=== PATIENT | female | born 1940 | race Caucasian/White ===

== ENCOUNTER 2019-06-03 21:12 | Inpatient (IN) ==
[2019-06-03] MEDS ORDERED: ALBUT/IPRATROP 3MG/0.5MG NEB 3 ML VIAL NEB ONE (22:08)
--- NOTE | 2019-06-03 22:14 | XRay Report ---
SINGLE VIEW CHEST CLINICAL HISTORY: Generalized weakness. FINDINGS: An AP, portable, upright chest radiograph is obtained. No prior studies are available for c omparison at the time of dictation. The examination is degraded by portable technique and patient rot ation. A right subclavian central venous infusion port is in place. The tip of the catheter projects over the right atrium. The heart is enlarged noting atherosclerotic calcification of the thoracic aor ta. There is pulmonary vascular congestion. There are small pleural effusions with bibasilar consolid ation. No pneumothorax is seen. The skeletal structures are osteopenic. The bony thorax is grossly in tact. IMPRESSION: 1. Cardiomegaly with evidence of congestive failure. 2. Small pleural effusions with bibasilar consolidation. Electronically signed by: Suman Cobb M.D. 06/03/2019 10:13 PM
[2019-06-03] MEDS ORDERED: NovoLIN-R INSULIN PER UNIT CHARGE IV STA ×2 (22:21→23:03)
[2019-06-03 22:30] LABS: iSTAT Creatinine 1.1 mg/dl (0.6-1.3); iSTAT Hemoglobin 9.2 g/dl (12.0-16.0); iSTAT Ionized Calcium 1.24 mmol/l (1.12-1.32); iSTAT Potassium 5.1 mEq/L (3.3-5.0)
[2019-06-03 22:52] LABS: Hematocrit (blood only) 30.7 % (37-47); Hemoglobin 9.1 g/dL (12.0-16.0); Mean Corpuscular Hemoglobin 28.1 pg (25-34); Mean Corpuscular Hgb Conc 29.6 g/dL (32-36); Mean Corpuscular Volume 94.8 fL (80-100); Mean Platelet Volume 9.5 fL (7.4-10.4); Platelet Count 233 K/uL (130-400); RDW Coefficient of Variation 17.3 % (11.5-14.5); Red Blood Count 3.24 M/uL (4.2-5.4); White Blood Count 7.78 K/uL (4.8-10.8)
[2019-06-03] MEDS ORDERED: SODIUM CHLORIDE 0.9% 1000ML 1,000 ML IV ONE (22:52)
[2019-06-03 23:06] LABS: Base Excess VBG 9.7 mEq/L; pH VBG 7.32 (7.36-7.41)
[2019-06-03 23:15] LABS: Basophilic Stippling 1+; Basophils # (auto) 0.02 K/uL (0-0.2); Basophils % (auto) 0.3 %; Immature Granulocytes # (auto) 0.66 K/uL (0.00-0.02); Immature Granulocytes % (auto) 8.5 %; Lymphocytes # (auto) 0.82 K/uL (1.2-3.4); Lymphocytes % (auto) 10.5 %; Monocytes # (auto) 0.36 K/uL (0.11-0.59); Monocytes % (auto) 4.6 %; Neutrophils # (auto) 5.92 K/uL (1.4-6.5); Neutrophils % (auto) 76.1 %
[2019-06-03 23:27] LABS: Alanine Aminotransferase 17 U/L (12-78); Albumin Globulin Ratio 0.5 (0.9-2); Albumin Level 2.1 gm/dl (3.4-5.0); Alkaline Phosphatase 91 U/L (45-117); Aspartate Aminotransferase 7 U/L (15-37); BUN Creatinine Ratio 35.8 (10-20); Bilirubin,Total 0.3 mg/dl (0.2-1); Blood Urea Nitrogen 40 mg/dl (7-18); Calcium 8.7 mg/dl (8.5-10.1); Carbon Dioxide 36 mmol/L (21-32); Chloride 103 mmol/L (98-107); Creatinine Clr Calc Pharmacy 59.6 ml/min; Est GFR (African American) 54.9; Est GFR (Non-African American) 47.3; Globulin 4.3 gm/dl (2.5-4.0); Glucose 417 mg/dl (70-99); Potassium 5.1 mmol/L (3.5-5.1); Sodium 141 mmol/L (136-145); Thyroid Stimulating Hormone 0.274 uIu/ml (0.300-4.500); Total Protein 6.4 gm/dl (6.4-8.2); Troponin I < 0.015 ng/ml (0-0.045)
[2019-06-03 23:43] LABS: Beta-Hydroxybutyrate 0.78 mg/dl (0.2-2.81)
[2019-06-03] MEDS ORDERED: LORazepam 1 MG/2 ML VIAL IV STA (23:46)
--- NOTE | 2019-06-03 23:46 | Emergency Department Note ---
Entered by Kathryn Das acting as a scribe for History of Present Illness General Chief complaint: Weakness Stated complaint: WEAKNESS Time Seen by Provider: 06/03/19 21:47 Source: patient History of Present Illness Onset (ago): week(s) 1 Location: head, upper extremity and lower extremity Pain Consistency: + other (after receiving blood transfusion 1 week ago) Quality: + other (weakness) Associated symptoms: + shortness of breath and + other (Negative abdominal pain) The patient is a 78 year old female who presents to the ED with complaints of weakness beginning last week. She has a hx of uterine cancer, on chemo. She had been receiving treatments at [place]. She received a blood transfusion last week and since then, she has had weakness and SOB. The patient denies any abdominal pain. She wears 2 L of O2 at night. Her PCP is Dr. Demi Ortega, Family Medicine. Home Medications Home Medications Medication Instructions Recorded Confirmed Type Vitamin B Complex Liquid 1 dose PO DAILY 06/03/19 06/03/19 History albuterol sulfate 2.5 mg/kg CONTINUOUS NEBULIZATION 06/03/19 06/03/19 History Q4 PRN allopurinol 100 mg PO DAILY 06/03/19 06/03/19 History budesonide-formoterol [Symbicort] 2 puff INHALATION BID 06/03/19 06/03/19 History bumetanide 0.5 mg PO DAILY 06/03/19 06/03/19 History cholecalciferol (vitamin D3) 0 unit PO DAILY 06/03/19 06/03/19 History [Vitamin D3] ciprofloxacin HCl 500 mg PO BID 06/03/19 06/03/19 History dexamethasone [Decadron] 8 mg PO UD 06/03/19 06/03/19 History ipratropium-albuterol 3 ml INHALATION QID PRN 06/03/19 06/03/19 History levothyroxine 150 mcg PO CQWK 06/03/19 06/03/19 History lisinopril 10 mg PO DAILY 06/03/19 06/03/19 History ondansetron HCl [Zofran] 8 mg PO Q8 06/03/19 06/03/19 History potassium chloride 10 meq PO DAILY 06/03/19 06/03/19 History prednisone 0 mg PO .TAPER UD 06/03/19 06/03/19 History prochlorperazine maleate 10 mg PO .Q4-6 PRN 06/03/19 06/03/19 History sod phos di, mono-K phos mono 1 tab PO BID 06/03/19 06/03/19 History [Phospha 250 Neutral] terconazole 1 appful VAGINAL UD 06/03/19 06/03/19 History Allergies Allergy/AdvReac Type Severity Reaction Status Date / Time No Known Allergies Allergy Unverified 06/03/19 22:22 Past Med/Surg History Medical History Encounter for insertion of venous access port Uterine cancer Surgical History No pertinent past surgical history Family History Other No pertinent family history in first degree relatives Social History Feels Safe at Home: Yes Smoking Status: Never smoker Review of Systems See HPI for pertinent positives & negatives. and A total of 10 systems reviewed and were otherwise negative Physical Exam Vital Signs Vital Signs - 24 hr 06/03/19 21:10 06/03/19 22:00 06/03/19 22:31 Temperature 36.7 C Temperature Source Oral Pulse Rate 81 75 67 Pulse Rate [Apical] Pulse Rate from SpO2 Sensor 78 Respiratory Rate 24 15 26 H Respiratory Effort / Characteristics Non-Labored Spontaneous Short of Breath Respiratory Depth Normal Respiratory Pattern Regular Blood Pressure 144/80 H 179/88 H Blood Pressure [Left Arm] Blood Pressure Mean 88 126 Blood Pressure Mean [Left Arm] Pulse Oximetry 88 L 100 Oxygen Delivery Method Nasal Cannula Nasal Cannula Oxygen Flow Rate 2 2 Sepsis Recent Fever Within 48 Hours No Sepsis New/Unexplained Change in Mental Status No Sepsis Action Taken by Nursing No Action Required Oxygen Flow Rate - Titration 2 Pulse Oximetry Post Tiitration 94 06/03/19 22:38 06/03/19 23:25 06/04/19 01:18 Temperature Temperature Source Pulse Rate Pulse Rate [Apical] 65 94 H 112 H Pulse Rate from SpO2 Sensor Respiratory Rate 18 20 22 Respiratory Effort / Characteristics Non-Labored Spontaneous Respiratory Depth Respiratory Pattern Blood Pressure Blood Pressure [Left Arm] 153/95 H 170/76 H Blood Pressure Mean Blood Pressure Mean [Left Arm] 114 107 Pulse Oximetry 100 94 94 Oxygen Delivery Method Nasal Cannula Nasal Cannula Nasal Cannula Oxygen Flow Rate 4 2 2 Sepsis Recent Fever Within 48 Hours Sepsis New/Unexplained Change in Mental Status Sepsis Action Taken by Nursing Oxygen Flow Rate - Titration Pulse Oximetry Post Tiitration GENERAL: Awake, alert, well-appearing, in no acute distress HENT: Normocephalic, atraumatic. Oropharynx unremarkable. EYES: Normal conjunctiva. Sclera non-icteric. NECK: Supple. No nuchal rigidity. FROM. No JVD. RESPIRATORY: Clear to auscultation. CARDIAC: Regular rate, normal rhythm. Extremities warm and well perfused. Pulses equal. ABDOMEN: Soft, non-distended. No tenderness to palpation. No rebound or guarding. No masses. RECTAL: Deferred. MUSCULOSKELETAL: Chest examination reveals no tenderness. Port in place in right chest wall. The back is symmetrical on inspection without obvious abnormality. There is no CVA tenderness to palpation. No joint edema. LOWER EXTREMITIES: Calves are equal size bilaterally and non-tender. No edema. No discoloration. NEURO: Normal sensorium. No sensory or motor deficits noted. SKIN: No rash or jaundice noted. Course Course 2154: Past medical records reviewed. The patient was evaluated in room A3. A complete history and physical exam was performed. Administered Medications Ioversol (Optiray 320 125ml) 125 ml IV ONCE PRN PRN Reason: Interaction Checking Stop: 06/08/19 00:47 Last Admin: 06/04/19 00:48 Dose: 91 ml Documented by: [id number] Discontinued Medications Albuterol (Duoneb) 12 ml NEB ONE ONE Stop: 06/03/19 22:09 Last Admin: 06/03/19 22:34 Dose: 12 ml Documented by: [id number] Furosemide (Lasix) 40 mg IV NOW STA Stop: 06/04/19 01:06 Last Admin: 06/04/19 01:07 Dose: 40 mg Documented by: [id number] Sodium Chloride (Nss 1000ml) 1,000 mls @ 999 mls/hr IV .Q1H1M ONE Stop: 06/03/19 23:52 Last Infusion: 06/04/19 00:02 Dose: 0 mls/hr Documented by: [id number] Admin: 06/03/19 22:59 Dose: 999 mls/hr Documented by: [id number] Lorazepam (Ativan) 1 mg in 2 mls @ 2 mls/min IV NOW STA Stop: 06/03/19 23:47 Last Admin: 06/03/19 23:51 Dose: 2 mls/min Documented by: [id number] Lorazepam (Ativan) 1 mg in 2 mls @ 2 mls/min IV NOW STA Stop: 06/04/19 00:20 Last Admin: 06/04/19 00:24 Dose: 2 mls/min Documented by: [id number] Insulin Human Regular (Novolin R U-100 Per Unit) 10 units IV NOW STA Stop: 06/03/19 22:22 Last Admin: 06/03/19 22:59 Dose: 10 units Documented by: [id number] Cosigned by: [id number] Insulin Human Regular (Novolin R U-100 Per Unit) 10 units IV NOW STA Stop: 06/03/19 23:04 Last Admin: 06/03/19 23:26 Dose: 10 units Documented by: [id number] Cosigned by: [id number] Methylprednisolone (Solumedrol) 125 mg IV NOW STA Stop: 06/04/19 00:42 Last Admin: 06/04/19 01:06 Dose: 125 mg Documented by: [id number] Medical Decision Making Differential Diagnosis Differential diagnosis: Etiologies such as metabolic, infection, hypo/hyperglycemia, electrolyte abnormalities, cardiac sources, intracerebral event, toxicologic, neurologic, as well as others were entertained. Medical Records Attestation: I reviewed the patient's medical records. Home Medications Current Medication List: was personally reviewed by me Laboratory Data Result diagrams: 06/03/19 21:57 06/03/19 21:57 Lab Results 06/03/19 06/03/19 06/03/19 Range/Units 21:57 21:57 21:57 WBC 7.78 (4.8-10.8) K/uL RBC 3.24 L (4.2-5.4) M/uL Hgb 9.1 L (12.0-16.0) g/dL POC Hgb (12.0-16.0) g/dl Hct 30.7 L (37-47) % POC Hct (37-47) % MCV 94.8 (80-100) fL MCH 28.1 (25-34) pg MCHC 29.6 L (32-36) g/dL RDW Std Deviation 60.0 H (36.4-46.3) fL RDW Coeff of Gal 17.3 H (11.5-14.5) % Plt Count 233 (130-400) K/uL MPV 9.5 (7.4-10.4) fL Immature Gran % (Auto) 8.5 % Neut % (Auto) 76.1 % Lymph % (Auto) 10.5 % [place] % (Auto) 4.6 % Eos % (Auto) 0.0 % Baso % (Auto) 0.3 % Immature Gran # (Auto) 0.66 H (0.00-0.02) K/uL Neut # (Auto) 5.92 (1.4-6.5) K/uL Lymph # (Auto) 0.82 L (1.2-3.4) K/uL [place] # (Auto) 0.36 (0.11-0.59) K/uL Eos # (Auto) 0.00 (0-0.5) K/uL Baso # (Auto) 0.02 (0-0.2) K/uL Basophilic Stippling 1+ VBG pH (7.36-7.41) VBG pCO2 (38-50) mmHg VBG pO2 mmHg VBG HCO3 mmol/L VBG O2 Saturation % VBG Base Excess mEq/L Barometric Pressure mm/Hg POC Sodium (135-144) mEq/L Sodium 141 (136-145) mmol/L POC Potassium (3.3-5.0) mEq/L Potassium 5.1 (3.5-5.1) mmol/L POC Chloride (101-112) mEq/L Chloride 103 (98-107) mmol/L Carbon Dioxide 36 H (21-32) mmol/L POC Total CO2 (24-31) mEq/l Anion Gap 2.0 L (3-11) POC Anion Gap (16-25) mmol/L POC BUN (7-18) mg/dl BUN 40 H (7-18) mg/dl Creatinine 1.12 (0.6-1.2) mg/dl POC Creatinine (0.6-1.3) mg/dl Est Cr Clr Drug Dosing 59.6 ml/min Est GFR ( Amer) 54.9 Est GFR (Non-Af Amer) 47.3 BUN/Creatinine Ratio 35.8 H (10-20) Glucose 417 H* (70-99) mg/dl POC Glucose (70-99) POC Glucose (other) (70-99) mg/dl Lactate 1.2 (0.4-2.0) mmol/L Calcium 8.7 (8.5-10.1) mg/dl POC Ioniz Calcium Fal[place]i (1.12-1.32) mmol/l Total Bilirubin 0.3 (0.2-1) mg/dl AST 7 L (15-37) U/L ALT 17 (12-78) U/L Alkaline Phosphatase 91 (45-117) U/L Troponin I < 0.015 (0-0.045) ng/ml NT-Pro-B Natriuret Pep 2412 H (0-1800) pg/ml Total Protein 6.4 (6.4-8.2) gm/dl Albumin 2.1 L (3.4-5.0) gm/dl Globulin 4.3 H (2.5-4.0) gm/dl Albumin/Globulin Ratio 0.5 L (0.9-2) Beta-Hydroxybutyric Acd 0.78 (0.2-2.81) mg/dl TSH 0.274 L (0.300-4.500) uIu/ml 06/03/19 06/03/19 06/03/19 Range/Units 22:16 22:50 23:23 WBC (4.8-10.8) K/uL RBC (4.2-5.4) M/uL Hgb (12.0-16.0) g/dL POC Hgb 9.2 L (12.0-16.0) g/dl Hct (37-47) % POC Hct 27 L (37-47) % MCV (80-100) fL MCH (25-34) pg MCHC (32-36) g/dL RDW Std Deviation (36.4-46.3) fL RDW Coeff of Gal (11.5-14.5) % Plt Count (130-400) K/uL MPV (7.4-10.4) fL Immature Gran % (Auto) % Neut % (Auto) % Lymph % (Auto) % [place] % (Auto) % Eos % (Auto) % Baso % (Auto) % Immature Gran # (Auto) (0.00-0.02) K/uL Neut # (Auto) (1.4-6.5) K/uL Lymph # (Auto) (1.2-3.4) K/uL [place] # (Auto) (0.11-0.59) K/uL Eos # (Auto) (0-0.5) K/uL Baso # (Auto) (0-0.2) K/uL Basophilic Stippling VBG pH 7.32 L (7.36-7.41) VBG pCO2 75 H (38-50) mmHg VBG pO2 168 mmHg VBG HCO3 38 mmol/L VBG O2 Saturation 99.0 % VBG Base Excess 9.7 mEq/L Barometric Pressure 734.1 mm/Hg POC Sodium 140 (135-144) mEq/L Sodium (136-145) mmol/L POC Potassium 5.1 H (3.3-5.0) mEq/L Potassium (3.5-5.1) mmol/L POC Chloride 99 L (101-112) mEq/L Chloride (98-107) mmol/L Carbon Dioxide (21-32) mmol/L POC Total CO2 36 H (24-31) mEq/l Anion Gap (3-11) POC Anion Gap 11.0 L (16-25) mmol/L POC BUN 36 H (7-18) mg/dl BUN (7-18) mg/dl Creatinine (0.6-1.2) mg/dl POC Creatinine 1.1 (0.6-1.3) mg/dl Est Cr Clr Drug Dosing ml/min Est GFR ( Amer) Est GFR (Non-Af Amer) BUN/Creatinine Ratio (10-20) Glucose (70-99) mg/dl POC Glucose 373 H* (70-99) POC Glucose (other) 425 H* (70-99) mg/dl Lactate (0.4-2.0) mmol/L Calcium (8.5-10.1) mg/dl POC Ioniz Calcium Falguni 1.24 (1.12-1.32) mmol/l Total Bilirubin (0.2-1) mg/dl AST (15-37) U/L ALT (12-78) U/L Alkaline Phosphatase (45-117) U/L Troponin I (0-0.045) ng/ml NT-Pro-B Natriuret Pep (0-1800) pg/ml Total Protein (6.4-8.2) gm/dl Albumin (3.4-5.0) gm/dl Globulin (2.5-4.0) gm/dl Albumin/Globulin Ratio (0.9-2) Beta-Hydroxybutyric Acd (0.2-2.81) mg/dl TSH (0.300-4.500) uIu/ml Imaging Data Radiologist's Impression: Radiology results as stated below per my review and the radiologist's interpretation: SINGLE VIEW CHEST CLINICAL HISTORY: Generalized weakness. FINDINGS: An AP, portable, upright chest radiograph is obtained. No prior studi es are available for comparison at the time of dictation. The examination is degraded by portable technique and patient rotation. A right subclavian central venous infusion port is in place. The tip of the catheter projects over the right atrium. The heart is enlarged noting atherosclerotic calcification of the thoracic aorta. There is pulmonary vascular congestion. There are small pleural effusions with bibasilar consolidation. No pneumothorax is seen. The skeletal structures are osteopenic. The bony thorax is grossly intact. IMPRESSION: 1. Cardiomegaly with evidence of congestive failure. 2. Small pleural effusions with bibasilar consolidation. Electronically signed by: Suman Cobb M.D. 06/03/2019 10:13 PM CTA of the chest: No pulmonary embolus. Reduced lung volumes. Consolidative atelectasis in the lower lung rosa. Very small bilateral pleural effusions. Cardiomegaly. Port cath. ECG Data Attestation: I personally reviewed and interpreted this ECG as follows: Indication: + weakness Rate (beats per minute): 67 Rhythm: + normal sinus ECG [place]: + Normal ECG ST segments: no ST depression and no ST elevation ECG Findings: + Other (QTC 418) MDM Narrative This is a 78-year-old female who presents emergency department complaining of generalized weakness and shortness of breath. Patient is currently getting chemotherapy for uterine cancer. Her blood sugar was found to be grossly elev ated and therefore the patient was given IV insulin x2. She was also given a normal saline bolus however the patient does appear to be volume overloaded on her chest x-ray. For this reason the patient was given 40 of Lasix here in the emergency department. She was also started on methylprednisolone. And given breathing treatments. She had to be sedated to have a CAT scan of her chest as she does have a history of cancer and I want to ensure that this is not a pulmonary embolus due to her cancer status. She did receive Ativan for this. She was given a [place] as well as Lasix. Patient and family are in agreement with the treatment plan. I did discuss the case with the hospitalist who agreed to admit the patient. Impression & Plan Uterine cancer, Hypoxia, Acute hyperglycemia Discharge Plan Visit Data Chief Complaint: Weakness Stated Complaint: WEAKNESS ED Provider: Loco Travis Discharge Problem: Uterine cancer, Hypoxia, Acute hyperglycemia Forms Stand Alone Forms: [facility] [employer] Prescriptions Prescriptions: No Action terconazole 0.4 % cream 1 appful VAGINAL UD RF: 0 prednisone 10 mg tablet 0 mg PO .TAPER UD RF: 0 ipratropium-albuterol 0.5 mg-3 mg(2.5 mg base)/3 mL solution for nebulization 3 ml INHALATION QID PRN (Reason: Shortness Of Breath Or Wheezing) RF: 0 albuterol sulfate 2.5 mg /3 mL (0.083 %) solution for nebulization 2.5 mg/kg continuous nebulization Q4 PRN (Reason: Shortness Of Breath Or Wheezing) RF: 0 ondansetron HCl [Zofran] 8 mg tablet 8 mg PO Q8 RF: 0 potassium chloride 10 mEq tablet extended release 10 meq PO DAILY RF: 0 prochlorperazine maleate 10 mg tablet 10 mg PO .Q4-6 PRN (Reason: Nausea) RF: 0 allopurinol 100 mg tablet 100 mg PO DAILY RF: 0 ciprofloxacin HCl 500 mg tablet 500 mg PO BID RF: 0 bumetanide 0.5 mg tablet 0.5 mg PO DAILY RF: 0 dexamethasone [Decadron] 4 mg tablet 8 mg PO UD RF: 0 lisinopril 10 mg Tablet 10 mg PO DAILY RF: 0 levothyroxine 150 mcg tablet 150 mcg PO CQWK RF: 0 Phospha 250 Neutral 250 mg tablet 1 tab PO BID RF: 0 Symbicort 160-4.5 mcg/actuation Hfa Aerosol Inhaler 2 puff INHALATION BID RF: 0 cholecalciferol (vitamin D3) [Vitamin D3] 1,000 unit Tablet,Chewable 0 unit PO DAILY RF: 0 Vitamin B Complex Liquid 1 dose PO DAILY RF: 0 Referrals Referrals: Demi Gomez [Primary Care Provider] - Discharge Problem: Uterine cancer Qualifiers: Malignant neoplasm of uterus location: unspecified site of uterus Qualified Code(s): C55 - Malignant neoplasm of uterus, part unspecified The scribe's documentation has been prepared under my direction and personally reviewed by me in its entirety. I confirm that the note above accurately reflect s all work, treatment, procedures, and medical decision making performed by me.
[2019-06-04] MEDS ORDERED: LORazepam 1 MG/2 ML VIAL IV STA (00:19)
[2019-06-04] MEDS ORDERED: methylPREDNISolone 125 MG/2 ML VIAL IV STA (00:41)
[2019-06-04] MEDS ORDERED: OPTIRAY 320 125ml IV PRN (00:48)
[2019-06-04] MEDS ORDERED: FUROSEMIDE 40 MG/4 ML VIAL IV STA (01:05)
[2019-06-04 01:32] LABS: NT Pro B Type Natriuretic Pept 2412 pg/ml (0-1800)
[2019-06-04] MEDS ORDERED: METOPROLOL TARTRATE 1 MG/ML VIAL IV STA (01:38)
[2019-06-04 01:50] LABS: Appearance Urine Clear (Clear); Bilirubin Urine Negative (Negative); Blood Urine Negative (Negative); Color Urine Yellow; Glucose Urine UA 1+ (Negative); Ketones Urine Negative (Negative); Leukocyte Esterase Urine Negative (Negative); Nitrite Urine Negative (Negative); Protein Urine Negative (Negative); Specific Gravity Urine 1.031 (1.000-1.030); Urobilinogen Urine Negative (Negative)
[2019-06-04 02:00] LABS: Magnesium 2.1 mg/dl (1.8-2.4); T4 Free Thyroxine 1.34 ng/dl (0.8-1.6)
[2019-06-04 02:23] LABS: Partial Thromboplastin Ratio 0.9; Partial Thromboplastin Time 23.9 Seconds (21.0-31.0)
[2019-06-04 02:24] LABS: Iron 44 mcg/dl (35-150)
[2019-06-04 02:50] LABS: Influenza A virus by PCR Neg for Influ A (Neg); Influenza B virus by PCR Neg for Influ B (Neg)
[2019-06-04 03:12] LABS: Hematocrit (blood only) 30.7 % (37-47); Hemoglobin 8.9 g/dL (12.0-16.0); Mean Corpuscular Hemoglobin 27.6 pg (25-34); Mean Platelet Volume 8.9 fL (7.4-10.4); Platelet Count 253 K/uL (130-400); RDW Coefficient of Variation 17.2 % (11.5-14.5); Red Blood Count 3.23 M/uL (4.2-5.4); Reticulocyte % 1.5 % (0.5-2.0); Reticulocytes # 0.05 10^6/uL (0.02-0.10)
[2019-06-04 03:18] LABS: Base Excess ABG 8.1 mEq/L (-9-1.8); HCO3 ABG 36 mmol/L (19-24); PCO2 ABG 67 mmHg (35-46); PO2 ABG 85 mm/Hg (80-95); pH ABG 7.34 (7.35-7.45)
[2019-06-04 03:20] LABS: Allen Test Pos (Pos)
--- NOTE | 2019-06-04 03:24 | History & Physical Report ---
Date of Service June 04, 2019 Assessment & Plan (1) Acute and chronic respiratory failure with hypercapnia: Secondary to subacute CHF Possible fluid overload post blood transfusion last week Uncontrolled blood pressure, fluid retention possibly from steroid taper prescription for recent COPD exacerbation Possible right-sided heart failure secondary to undiagnosed OHS Respiratory acidosis secondary to above endometrial cancer status post surgery ongoing chemotherapy DM 2, diet-controlled Marked hyperglycemia likely secondary to steroid Rx Well-controlled as of recent outpatient hemoglobin A1c of 6.08 May 2019 hypothyroidism, abnormal TFTs likely secondary to sick euthyroid syndrome chronic anemia, hemoglobin likely at baseline PCU BiPAP Follow ABG Limit sedatives Diuretic Rx Strict I/Os, daily weights, CHF education TTE, Cardiology consult RE CHF Initiate beta-juvenal for BP control/CHF diagnosis, decrease home lisinopril given borderline hyperkalemia Retrieve outpatient Pulmonary records from [facility] Outpatient sleep study May need inpatient pulmonary evaluation for hypercapnic respiratory failure Basal insulin, ISS BG goal [id number], recheck hemoglobin A1c DVT prophylaxis. Lovenox subcu Full code Patient's requesting updates from providers. Mr. Parada Balwinder, contact #[phone]. Total critical care time was 50 minutes. History of Present Illness , GERD device placement Chief Complaint: Shortness of breath Primary Care Provider: Demi Gomez History obtained from patient, family, and records. History somewhat limited from patient secondary to lethargy post Ativan administration at the ER. Medical history significant for chronic respiratory failure on home O2 at night, hypertension, possible COPD as per records ( disputes diagnosis), endometrial cancer status post surgery ongoing chemotherapy, DM 2, diet- controlled hypothyroidism, chronic anemia (baseline hemoglobin 9-10), gout. Patient underwent debulking surgery for stage III endometrial carcinoma at [facility] in [place] last December 2018. Postop, patient discharged on home O2 at night. Possible COPD as per records. 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 Outpatient PFTs yet to be reviewed with patient as per . No prior sleep studies as per . Recent confinement [facility] 2 weeks ago for possible CHF, pneumonia, COPD exacerbation, UTI. Patient discharged on Cipro and Prednisone taper. Outpatient hemoglobin noted to be 7.5 last week. Outpatient 1 unit PRBC at [facility] last week. Posttransfusion upon arrival at home, patient had low-grade fever and increasing shortness of breath requiring Home O2 use throughout the day as per . Some fluid retention over the last few months as per . No unusual cough symptoms. No consultations done. Patient brought due to worsening shortness of breath, generalized weakness. Denies chest pain. At the ER, patient received IV Lasix, IV Solu-Medrol for congestion. IV Ativan administered for anxiety prior to CT study. Regular insulin given for blood sugar in the 400s. Medical History as above Surgical History : Cholecystectomy, umbilical hernia repair, SANJUANITA-BSO/debulking surgery, vascular device placement Family History : COPD, arthritis Personal/Social history : Non-smoker, no EtOH intake, lives with Allergies Allergy/AdvReac Type Severity Reaction Status Date / Time No Known Allergies Allergy Unverified 06/03/19 22:22 Home Medications Home Medications Medication Instructions Recorded Confirmed Type Vitamin B Complex Liquid 1 dose PO DAILY 06/03/19 06/03/19 History albuterol sulfate 2.5 mg/kg CONTINUOUS NEBULIZATION 06/03/19 06/03/19 History Q4 PRN allopurinol 100 mg PO DAILY 06/03/19 06/03/19 History budesonide-formoterol [Symbicort] 2 puff INHALATION BID 06/03/19 06/03/19 History bumetanide 0.5 mg PO DAILY 06/03/19 06/03/19 History cholecalciferol (vitamin D3) 0 unit PO DAILY 06/03/19 06/03/19 History [Vitamin D3] ciprofloxacin HCl 500 mg PO BID 06/03/19 06/03/19 History dexamethasone [Decadron] 8 mg PO UD 06/03/19 06/03/19 History ipratropium-albuterol 3 ml INHALATION QID PRN 06/03/19 06/03/19 History levothyroxine 150 mcg PO CQWK 06/03/19 06/03/19 History lisinopril 10 mg PO DAILY 06/03/19 06/03/19 History ondansetron HCl [Zofran] 8 mg PO Q8 06/03/19 06/03/19 History potassium chloride 10 meq PO DAILY 06/03/19 06/03/19 History prednisone 0 mg PO .TAPER UD 06/03/19 06/03/19 History prochlorperazine maleate 10 mg PO .Q4-6 PRN 06/03/19 06/03/19 History sod phos di, mono-K phos mono 1 tab PO BID 06/03/19 06/03/19 History [Phospha 250 Neutral] terconazole 1 appful VAGINAL UD 06/03/19 06/03/19 History Past Med/Surg History Medical History Encounter for insertion of venous access port Uterine cancer Surgical History No pertinent past surgical history Family History Other No pertinent family history in first degree relatives Social History Preferred Language: Burkinan Communication Ability: Effective Beliefs That Will Affect Care: None Current Living Situation: Alone Feels Safe at Home: Yes Safety Concerns: Feels Safe At This Time Smoking Status: Never smoker Hx Alcohol Use: No Hx Substance Use: No Review of Systems Review of Systems: Somewhat limited secondary to lethargy Physical Exam Physical Exam: GENERAL: Lethargic, obese, no respiratory distress SKIN: Pallor , warm HEENT: Alopecia, bespectacled, pale palpebral conjunctivae, no ptosis, nasal cannula in place, dry buccal mucosa NECK : Supple, short neck, no tenderness CHEST : Decreased breath sounds, bibasilar crackles, no tenderness HEART : RRR, no obvious murmurs ABDOMEN: Some distention, nontender EXTREMITIES : Bilateral LE swelling, no LE tenderness, no other conspicuous deformities noted NEUROLOGIC : Lethargic , no facial asymmetry, no other gross focality Results & Data Vital Signs (Past 12 Hours) Vital Signs Temp Pulse Pulse Resp BP BP Pulse Ox 06/04/19 03:02 86 20 205/100 H 100 06/04/19 01:18 112 H 22 170/76 H 94 06/03/19 23:25 94 H 20 153/95 H 94 06/03/19 22:38 65 18 100 06/03/19 22:31 67 26 H 179/88 H 06/03/19 22:00 75 15 144/80 H 100 06/03/19 21:10 36.7 C 81 24 88 L Laboratory Results Laboratory Results WBC 8.90 K/uL (4.8-10.8) 06/04/19 03:01 RBC 3.23 M/uL (4.2-5.4) L 06/04/19 03:01 Hgb 8.9 g/dL (12.0-16.0) L 06/04/19 03:01 POC Hgb 9.2 g/dl (12.0-16.0) L 06/03/19 22:16 Hct 30.7 % (37-47) L 06/04/19 03:01 POC Hct 27 % (37-47) L 06/03/19 22:16 MCV 95.0 fL (80-100) 06/04/19 03:01 MCH 27.6 pg (25-34) 06/04/19 03:01 MCHC 29.0 g/dL (32-36) L 06/04/19 03:01 RDW Std Deviation 60.0 fL (36.4-46.3) H 06/04/19 03:01 RDW Coeff of Gal 17.2 % (11.5-14.5) H 06/04/19 03:01 Plt Count 253 K/uL (130-400) 06/04/19 03:01 MPV 8.9 fL (7.4-10.4) 06/04/19 03:01 Immature Gran % (Auto) 8.5 % 06/03/19 21:57 Neut % (Auto) 76.1 % 06/03/19 21:57 Lymph % (Auto) 10.5 % 06/03/19 21:57 [place] % (Auto) 4.6 % 06/03/19 21:57 Eos % (Auto) 0.0 % 06/03/19 21:57 Baso % (Auto) 0.3 % 06/03/19 21:57 Reticulocyte % (Auto) 1.5 % (0.5-2.0) 06/04/19 03:01 Immature Gran # (Auto) 0.66 K/uL (0.00-0.02) H 06/03/19 21:57 Neut # (Auto) 5.92 K/uL (1.4-6.5) 06/03/19 21:57 Lymph # (Auto) 0.82 K/uL (1.2-3.4) L 06/03/19 21:57 [place] # (Auto) 0.36 K/uL (0.11-0.59) 06/03/19 21:57 Eos # (Auto) 0.00 K/uL (0-0.5) 06/03/19 21:57 Baso # (Auto) 0.02 K/uL (0-0.2) 06/03/19 21:57 Reticulocyte # 0.05 10^6/uL (0.02-0.10) 06/04/19 03:01 Basophilic Stippling 1+ 06/03/19 21:57 APTT 23.9 Seconds (21.0-31.0) 06/03/19 21:57 PTT Ratio 0.9 06/03/19 21:57 ABG pH 7.34 (7.35-7.45) L 06/04/19 02:46 ABG pCO2 67 mmHg (35-46) H 06/04/19 02:46 ABG pO2 85 mm/Hg (80-95) 06/04/19 02:46 ABG HCO3 36 mmol/L (19-24) H 06/04/19 02:46 ABG O2 Saturation 96.0 % (90-95) H 06/04/19 02:46 ABG Base Excess 8.1 mEq/L (-9-1.8) H 06/04/19 02:46 Hiro Test Pos (Pos) 06/04/19 02:46 VBG pH 7.32 (7.36-7.41) L 06/03/19 22:50 VBG pCO2 75 mmHg (38-50) H 06/03/19 22:50 VBG pO2 168 mmHg 06/03/19 22:50 VBG HCO3 38 mmol/L 06/03/19 22:50 VBG O2 Saturation 99.0 % 06/03/19 22:50 VBG Base Excess 9.7 mEq/L 06/03/19 22:50 Barometric Pressure 733.9 mm/Hg 06/04/19 02:46 Oxygen Given 3L O2 06/04/19 02:46 POC Sodium 140 mEq/L (135-144) 06/03/19 22:16 Sodium 141 mmol/L (136-145) 06/03/19 21:57 POC Potassium 5.1 mEq/L (3.3-5.0) H 06/03/19 22:16 Potassium 5.1 mmol/L (3.5-5.1) 06/03/19 21:57 POC Chloride 99 mEq/L (101-112) L 06/03/19 22:16 Chloride 103 mmol/L (98-107) 06/03/19 21:57 Carbon Dioxide 36 mmol/L (21-32) H 06/03/19 21:57 POC Total CO2 36 mEq/l (24-31) H 06/03/19 22:16 Anion Gap 2.0 (3-11) L 06/03/19 21:57 POC Anion Gap 11.0 mmol/L (16-25) L 06/03/19 22:16 POC BUN 36 mg/dl (7-18) H 06/03/19 22:16 BUN 40 mg/dl (7-18) H 06/03/19 21:57 Creatinine 1.12 mg/dl (0.6-1.2) 06/03/19 21:57 POC Creatinine 1.1 mg/dl (0.6-1.3) 06/03/19 22:16 Est Cr Clr Drug Dosing 59.6 ml/min 06/03/19 21:57 Est GFR ( Amer) 54.9 06/03/19 21:57 Est GFR (Non-Af Amer) 47.3 06/03/19 21:57 BUN/Creatinine Ratio 35.8 (10-20) H 06/03/19 21:57 Glucose 417 mg/dl (70-99) H* 06/03/19 21:57 POC Glucose 373 (70-99) H* 06/03/19 23:23 POC Glucose (other) 425 mg/dl (70-99) H* 06/03/19 22:16 Lactate 1.2 mmol/L (0.4-2.0) 06/03/19 21:57 Calcium 8.7 mg/dl (8.5-10.1) 06/03/19 21:57 POC Ioniz Calcium Fal[place] 1.24 mmol/l (1.12-1.32) 06/03/19 22:16 Magnesium 2.1 mg/dl (1.8-2.4) 06/03/19 21:57 Iron 44 mcg/dl (35-150) 06/03/19 21:57 Total Bilirubin 0.3 mg/dl (0.2-1) 06/03/19 21:57 AST 7 U/L (15-37) L 06/03/19 21:57 ALT 17 U/L (12-78) 06/03/19 21:57 Alkaline Phosphatase 91 U/L (45-117) 06/03/19 21:57 Troponin I < 0.015 ng/ml (0-0.045) 06/03/19 21:57 NT-Pro-B Natriuret Pep 2412 pg/ml (0-1800) H 06/03/19 21:57 Total Protein 6.4 gm/dl (6.4-8.2) 06/03/19 21:57 Albumin 2.1 gm/dl (3.4-5.0) L 06/03/19 21:57 Globulin 4.3 gm/dl (2.5-4.0) H 06/03/19 21:57 Albumin/Globulin Ratio 0.5 (0.9-2) L 06/03/19 21:57 Beta-Hydroxybutyric Acd 0.78 mg/dl (0.2-2.81) 06/03/19 21:57 TSH 0.274 uIu/ml (0.300-4.500) L 06/03/19 21:57 Free T4 1.34 ng/dl (0.8-1.6) 06/03/19 21:57 Total T3 0.41 ng/ml (0.60-1.81) L 06/03/19 21:57 Urine Color Yellow 06/04/19 01:30 Urine Appearance Clear (Clear) 06/04/19 01:30 Urine pH 5.0 (4.5-7.5) 06/04/19 01:30 Ur Specific [place] 1.031 (1.000-1.030) H 06/04/19 01:30 Urine Protein Negative (Negative) 06/04/19 01:30 Urine Glucose (UA) 1+ (Negative) H 06/04/19 01:30 Urine Ketones Negative (Negative) 06/04/19 01:30 Urine Blood Negative (Negative) 06/04/19 01:30 Urine Nitrite Negative (Negative) 06/04/19 01:30 Urine Bilirubin Negative (Negative) 06/04/19 01:30 Urine Urobilinogen Negative (Negative) 12/06/19 01:30 Ur Leukocyte Esterase Negative (Negative) 06/04/19 01:30 Influenza Type A (PCR) Neg for Influ A (Neg) 06/04/19 01:57 Influenza Type B (PCR) Neg for Influ B (Neg) 06/04/19 01:57 Diagnostic Findings Chest x-ray : 1. Cardiomegaly with evidence of congestive failure. 2. Small pleural effusions with bibasilar consolidation. EKG as per my interpretation : Rate 65, NSR, T wave abnormality septal leads, CT chest initial read: Reduced lung volumes, no pulmonary embolism. Atelectasis, small pleural effusions. Cardiomegaly, Port-A-Cath.
[2019-06-04 03:28] LABS: BUN Creatinine Ratio 37.4 (10-20); Calcium 8.9 mg/dl (8.5-10.1); Creatinine Clr Calc Pharmacy 66.7 ml/min; Est GFR (African American) 62.9; Est GFR (Non-African American) 54.3; Potassium 4.6 mmol/L (3.5-5.1)
[2019-06-04] MEDS ORDERED: LABETALOL HCL IV 5 MG/ML 20ML IV STA (03:31)
[2019-06-04 03:32] LABS: Ferritin 175.8 ng/ml (8-388)
[2019-06-04] MEDS ORDERED: INSULIN GLARGINE SOLOSTAR 100 UNITS/ML 3 ML PEN SC STA (03:32)
[2019-06-04 03:40] LABS: Basophils # (auto) 0.02 K/uL (0-0.2); Basophils % (auto) 0.2 %; Immature Granulocytes # (auto) 0.61 K/uL (0.00-0.02); Immature Granulocytes % (auto) 6.9 %; Lymphocytes # (auto) 0.41 K/uL (1.2-3.4); Lymphocytes % (auto) 4.6 %; Monocytes # (auto) 0.52 K/uL (0.11-0.59); Monocytes % (auto) 5.8 %; Neutrophils # (auto) 7.34 K/uL (1.4-6.5); Neutrophils % (auto) 82.5 %; RBC Morphology Unremarkable
[2019-06-04 04:04] LABS: Vitamin B12 > 2000 pg/ml (211-911)
[2019-06-04 04:05] LABS: Folate (Folic Acid) 15.56 ng/ml (>5.38)
[2019-06-04] MEDS ORDERED: CARBOHYDRATES FOR HYPOGLYCEMIA PO PRN (04:47)
[2019-06-04] MEDS ORDERED: ACETAMINOPHEN 325 MG TAB PO PRN (04:47)
[2019-06-04] MEDS ORDERED: IPRATROPIUM BROMIDE NEB SOLN 0.02% 2.5 ML VIAL INH PRN (04:47)
[2019-06-04] MEDS ORDERED: GLUCOSE 10 TABS/TUBE PO PRN (04:47)
[2019-06-04] MEDS ORDERED: GLUCOSE 40% GEL 15 GM TUBE PO PRN (04:47)
[2019-06-04] MEDS ORDERED: LEVALBUTEROL 1.25MG/0.5ML NEB INH PRN (04:47)
[2019-06-04] MEDS ORDERED: DEXTROSE 50% 50 ML SYRINGE IV PRN (04:47)
[2019-06-04] MEDS ORDERED: NITROGLYCERIN SL 0.4 MG/TAB TAB SL PRN (04:47)
[2019-06-04] MEDS ORDERED: XOPENEX/ATROVENT 1.25mg/0.5MG NEB COMBO NEB PRN (04:47)
[2019-06-04] MEDS ORDERED: PROMETHAZINE HCL 12.5 MG in SODIUM CHLORIDE 0.9% 50 ML IV PRN (04:47)
[2019-06-04] MEDS ORDERED: TRAMADOL HCL 50 MG TABLET PO PRN (04:47)
[2019-06-04] MEDS ORDERED: GLUCAGON FOR INJ 1 MG VIAL SQ PRN (04:47)
[2019-06-04] MEDS: INSULIN ASPART 100 UNITS/ML 3 ML PEN SC SCH ×5 (05:10→21:31)
[2019-06-04] MEDS: LEVOTHYROXINE SODIUM 150 MCG TABLET PO SCH (05:47)
[2019-06-04 05:57] LABS: Estimated Average Glucose 180 mg/dl; Hemoglobin A1C 7.9 % (4.5-5.6)
[2019-06-04 06:26] LABS: Base Excess ABG 7.7 mEq/L (-9-1.8); HCO3 ABG 36 mmol/L (19-24); PCO2 ABG 74 mmHg (35-46); PO2 ABG 135 mm/Hg (80-95); pH ABG 7.31 (7.35-7.45)
[2019-06-04 06:27] LABS: Allen Test Pos (Pos)
--- NOTE | 2019-06-04 06:31 | CT Scan Report ---
CT angio chest PE protocol CT DOSE: 1064.54 mGy.cm HISTORY: Chest pain. Dyspnea. PE TECHNIQUE: Multiaxial CT images of the chest were performed following the intravenous administration of contrast to evaluate the pulmonary arteries. Maximal intensity projection images were also obtaine d. A dose lowering technique was utilized adhering to the principles of ALARA. COMPARISON STUDY: None. This study is compromised due to patient body habitus. FINDINGS: Limited exam due to body habitus considerations. No major central pulmonary embolus. Thorac ic aorta shows mild atherosclerotic change. Bibasilar consolidative atelectasis with a trace amount o f basilar pleural fluid. IMPRESSION: 1. Limited study due to body habitus considerations. 2. No evidence for major central pulmonary embolus. 3. Bibasilar atelectasis/trace pleural effusions. The above report was generated using voice recognition software. It may contain grammatical, syntax or spelling errors. Electronically signed by: Gurmeet Dunaway M.D. 06/04/2019 6:30 AM
[2019-06-04] MEDS: FUROSEMIDE 40 MG in SYRINGE 0 ML IV SCH ×2 (08:39→17:12)
[2019-06-04 08:40] LABS: Base Excess ABG 8.6 mEq/L (-9-1.8); HCO3 ABG 36 mmol/L (19-24); PCO2 ABG 68 mmHg (35-46); PO2 ABG 91 mm/Hg (80-95); pH ABG 7.34 (7.35-7.45)
[2019-06-04] MEDS: allopurinoL 100 MG TAB PO SCH (08:40)
[2019-06-04] MEDS: BUDESONIDE/FORMOTEROL FUMARATE 160/4.5 60 PUFFS/INHALER INH SCH ×2 (08:40→21:34)
[2019-06-04] MEDS: ENOXAPARIN INJ 40 MG/0.4 ML SYR SQ SCH (08:40)
[2019-06-04] MEDS: VITAMIN B COMPLEX TAB PO SCH (08:40)
[2019-06-04] MEDS: METOPROLOL TARTRATE 25 MG TAB PO SCH ×2 (08:40→21:34)
[2019-06-04 08:41] LABS: Allen Test Pos (Pos)
[2019-06-04] MEDS ORDERED: FUROSEMIDE 40 MG/4 ML VIAL IV SCH (09:00)
[2019-06-04] MEDS: predniSONE 10 MG TABLET PO SCH (10:38)
--- NOTE | 2019-06-04 12:06 | Hospitalist Progress Note ---
Date of Service June 04, 2019 Assessment & Plan (1) Acute and chronic respiratory failure with hypercapnia: Possible secondary with CHF exacerbation due to fluid overload post blood transfusion last week CXR showed cardiomegaly with evidence of congestive failure. Small pleural effusions with bibasilar consolidation. CTA showed no evidence for major central pulmonary embolus. Bibasilar atelectasis/trace pleural effusions. ABG on admission showed PCO2 68 (possible she is CO2 retainer) Influenza negative Received Lasix 40mg IV and solumedrol on admission Was placed on Bipap, then transition on NC now Continue neb treatment, outpatient prednisone and Symbicort Continue oxygen supplement Continue Monitor closely Acute CHF CXR showed evidence of congestive failure ProBNP on admission 2412 received IV lasix 40mg on admission Continue lasix 40mg BID IV Monitor BMP while on IV lasix cardiology on board Echo pending continue monitor in tele Diabetes type 2 Hyperglycemia due to steroid Recent HbA1c 7.9 Continue lantus and novolog sliding scale Continue monitor BS Hypertension BP elevated Starting on Lisinopril 2.5 mg daily Continue metoprolol Monitor BP Endometrial cancer Status post surgery Currently undergoing Chemo q21 days Next chemo schedule on Friday after evaluating with oncology Hypothyroidism TSH 0.27 Continue Levothyroxine Will need to repeat TSH in 4 weeks Decubitus ulcer Continue daily wound care wound care on board Chronic anemia Received 1 unit PRBC last week Hgb 8.9 today Continue monitor CBC Generalized weakness fall precaution PT/OT DVT px on Lovenox Code status Full code Disposition Continue monitor in tele Patient's requesting updates from providers. Mr. Tal Britt, contact #[phone]. Total critical care time was 50 minutes. Subjective Pt was seen and examined Lying in bed with no distress eating lunch Pt said that her breathing is a little better She was transition from Bipap to NC She said that she was able to tolerate her diet She would like her diet to advance Denies any chest pain, palpitation, dizziness and fever Physical Exam Physical Exam: General- No acute distress Head- atraumatic Eyes- PERRL, EOMI, ENT- oropharynx clear Neck- supple, no JVD Lungs- diminished BS Heart- regular rhythm; no murmur Abdomen- normal bowel sounds, soft, nontender Extremities- no calf tenderness, +edema Neuro- alert, oriented x 3; PERRL, EOMI; no facial palsy; no dysarthria Skin- warm & dry, decubitus ulcer Results & Data Vital Signs (Past 12 Hours) Vital Signs Temp Pulse Pulse Resp BP Pulse Ox 06/04/19 11:03 36.9 C 60 20 158/73 H 96 06/04/19 08:00 76 06/04/19 07:41 36.5 C 66 22 121/76 98 06/04/19 04:47 36.6 C 65 24 158/74 H 100 06/04/19 04:36 67 06/04/19 04:00 70 22 165/77 H 97 06/04/19 03:38 77 20 98 06/04/19 03:02 86 20 205/100 H 100 06/04/19 01:18 112 H 22 170/76 H 94
--- NOTE | 2019-06-04 13:46 | Cardiology Consultation ---
Date of Consultation June 04, 2019 Assessment & Plan (1) Acute and chronic respiratory failure with hypercapnia: Continue bipap, steroids per hospitalist Continue IV diuretics. Monitor I+O's. Appears equal at this time. No net loss. ? Accuracy Low threshold to increase diuretic therapy over the next 24 hours if no great response or improvement. Monitor electrolytes (2) Acute on chronic diastolic heart failure with preserved ejection fraction: Diastolic dysfunction on echo. Preserved LV systolic function. Prior cardiac history is unknown. Will request records from Dr. Garcia (3) Hypertension: continue furosemide, metoprolol, lisinopril May need to hold lisinopril if she has recurrent hyperkalemia or renal insufficiency with diuresis. BP likely to improve with diuresis. Case discussed with Dr. Galicia. will follow. Continue diuresis. Supervising Physician Co-Signing Physician Notes I personally performed a history and physical on the patient. at bedside at the time of my assessment. I agree with the findings, assessment and plan of Teodoro Garcia PA-C with additions as noted below. S: Patient off of bipap support. Respiratory status improved. Denies history of a "heart problem". Previously was on oral furosemide, now on oral bumex. She has history of uterine cancer. Hysterectomy performed in [place]. Follows for chemo in [place]. Has had recent anemia, Hgb as low as ~6 per . Had firs transfusion of 1 unts PRBCS last week in [facility] over 2.5 hours, and has felt more SOB since. Denies history of PAMELA. Exam: Obese Decreased BS at the bases Mentating well. Impression: Echo with normal LVEF. Acute on chronic diastolic HF. Plan: Agree with furosemide 40 mg BID, Berman catheter in place Hgb stable. Lovenox SQ for DVT prophylaxis. History of Present Illness Reason for Consultation: CHF Requesting Physician: Dr. Grubbs Attending Physician: Dr. Galicia History of Present Illness Patient is a 78-year-old female who is unknown to [facility] cardiology with no prior encounters. She is currently slightly lethargic and on BiPAP and unable to provide any significant history. She was able to be aroused enough to tell me she has no significant past cardiac history. She saw Dr. Garcia in [place] several years ago and was told her heart was "fine". history obtained from admission H&P. She carries a history for chronic respiratory failure on home O2 at night, hypertension, endometrial cancer/ uterine cancer post surgery with ongoing chemotherapy, chronic anemia with recent blood transfusion, [facility], CHF and pneumonia with possible COPD exacerbation. Apparently she was treated with 1 unit packed red blood cells last week. since that time per records, patient developed worsening shortness of breath, weakness, worsening lower extremity edema. She was brought to the emergency room for evaluation. She was found to be Hypercapnic and started on IV Lasix and BiPAP therapy. at time of consult, patient currently wearing BiPAP therapy. She was able to tell me that her breathing feels slightly improved from admission. Echo Was completed earlier today and demonstrated preserved LV systolic function with diastolic dysfunction. Review of systems is limited due to BiPAP therapy. Allergies Allergy/AdvReac Type Severity Reaction Status Date / Time No Known Allergies Allergy Unverified 06/03/19 22:22 Home Medications Home Medications Medication Instructions Recorded Confirmed Type Vitamin B Complex Liquid 1 dose PO DAILY 06/03/19 06/03/19 History albuterol sulfate 2.5 mg/kg CONTINUOUS NEBULIZATION 06/03/19 06/03/19 History Q4 PRN allopurinol 100 mg PO DAILY 06/03/19 06/03/19 History budesonide-formoterol [Symbicort] 2 puff INHALATION BID 06/03/19 06/03/19 History bumetanide 0.5 mg PO DAILY 06/03/19 06/03/19 History cholecalciferol (vitamin D3) 0 unit PO DAILY 06/03/19 06/03/19 History [Vitamin D3] ciprofloxacin HCl 500 mg PO BID 06/03/19 06/03/19 History dexamethasone [Decadron] 8 mg PO UD 06/03/19 06/03/19 History ipratropium-albuterol 3 ml INHALATION QID PRN 06/03/19 06/03/19 History levothyroxine 150 mcg PO CQWK 06/03/19 06/03/19 History lisinopril 10 mg PO DAILY 06/03/19 06/03/19 History ondansetron HCl [Zofran] 8 mg PO Q8 06/03/19 06/03/19 History potassium chloride 10 meq PO DAILY 06/03/19 06/03/19 History prednisone 0 mg PO .TAPER UD 06/03/19 06/03/19 History prochlorperazine maleate 10 mg PO .Q4-6 PRN 06/03/19 06/03/19 History sod phos di, mono-K phos mono 1 tab PO BID 06/03/19 06/03/19 History [Phospha 250 Neutral] terconazole 1 appful VAGINAL UD 06/03/19 06/03/19 History Patient History Medical History Encounter for insertion of venous access port Uterine cancer Surgical History No pertinent past surgical history Family History Other No pertinent family history in first degree relatives Social History Preferred Language: Serbian Communication Ability: Effective Beliefs That Will Affect Care: None Current Living Situation: Alone Feels Safe at Home: Yes Safety Concerns: Feels Safe At This Time Smoking Status: Never smoker Hx Alcohol Use: No Hx Substance Use: No Review of Systems Review of Systems: Other ( Limited due to BiPAP therapy) Physical Exam Constitutional: + ill appearing and + morbidly obese Drowsy, on bipap Neck: + thick neck Respiratory: + labored breathing and + uses accessory muscles Auscultation: + diminished lung sounds Cardiovascular: Rate/Rhythm: regular rate Heart Sounds: no murmur (No audible murmur. distant heart sounds) Extremities: + edema (2+ LE edema b/l) Results & Data Vital Signs (Past 12 Hours) Vital Signs Temp Pulse Pulse Resp BP Pulse Ox 06/04/19 11:03 36.9 C 60 20 158/73 H 96 06/04/19 08:00 76 06/04/19 07:41 36.5 C 66 22 121/76 98 06/04/19 04:47 36.6 C 65 24 158/74 H 100 06/04/19 04:36 67 06/04/19 04:00 70 22 165/77 H 97 06/04/19 03:38 77 20 98 06/04/19 03:02 86 20 205/100 H 100 Laboratory Results 06/04/19 06/04/19 06/04/19 Range/Units 11:07 08:30 07:34 WBC (4.8-10.8) K/uL RBC (4.2-5.4) M/uL Hgb (12.0-16.0) g/dL POC Hgb (12.0-16.0) g/dl Hct (37-47) % POC Hct (37-47) % MCV (80-100) fL MCH (25-34) pg MCHC (32-36) g/dL RDW Std Deviation (36.4-46.3) fL RDW Coeff of Gal (11.5-14.5) % Plt Count (130-400) K/uL MPV (7.4-10.4) fL Immature Gran % (Auto) % Neut % (Auto) % Lymph % (Auto) % Dickenson % (Auto) % Eos % (Auto) % Baso % (Auto) % Reticulocyte % (Auto) (0.5-2.0) % Immature Gran # (Auto) (0.00-0.02) K/uL Neut # (Auto) (1.4-6.5) K/uL Lymph # (Auto) (1.2-3.4) K/uL Dickenson # (Auto) (0.11-0.59) K/uL Eos # (Auto) (0-0.5) K/uL Baso # (Auto) (0-0.2) K/uL Reticulocyte # (0.02-0.10) 10^6/uL RBC Morphology Basophilic Stippling APTT (21.0-31.0) Seconds PTT Ratio ABG pH 7.34 L (7.35-7.45) ABG pCO2 68 H (35-46) mmHg ABG pO2 91 (80-95) mm/Hg ABG HCO3 36 H (19-24) mmol/L ABG O2 Saturation 96.0 H (90-95) % ABG Base Excess 8.6 H (-9-1.8) mEq/L Hiro Test Pos (Pos) VBG pH (7.36-7.41) VBG pCO2 (38-50) mmHg VBG pO2 mmHg VBG HCO3 mmol/L VBG O2 Saturation % VBG Base Excess mEq/L Barometric Pressure 732.2 mm/Hg Oxygen Given 3L POC Sodium (135-144) mEq/L Sodium (136-145) mmol/L POC Potassium (3.3-5.0) mEq/L Potassium (3.5-5.1) mmol/L POC Chloride (101-112) mEq/L Chloride (98-107) mmol/L Carbon Dioxide (21-32) mmol/L POC Total CO2 (24-31) mEq/l Anion Gap (3-11) POC Anion Gap (16-25) mmol/L POC BUN (7-18) mg/dl BUN (7-18) mg/dl Creatinine (0.6-1.2) mg/dl POC Creatinine (0.6-1.3) mg/dl Est Cr Clr Drug Dosing ml/min Est GFR ( Amer) Est GFR (Non-Af Amer) BUN/Creatinine Ratio (10-20) Glucose (70-99) mg/dl POC Glucose 277 H 252 H (70-99) POC Glucose (other) (70-99) mg/dl Estimat Average Glucose mg/dl Hemoglobin A1c (4.5-5.6) % Lactate (0.4-2.0) mmol/L Calcium (8.5-10.1) mg/dl POC Ioniz Calcium [place]i (1.12-1.32) mmol/l Magnesium (1.8-2.4) mg/dl Iron (35-150) mcg/dl TIBC (250-450) mcg/dl Transferrin (200-360) mg/dl Ferritin (8-388) ng/ml Total Bilirubin (0.2-1) mg/dl AST (15-37) U/L ALT (12-78) U/L Alkaline Phosphatase (45-117) U/L Troponin I (0-0.045) ng/ml NT-Pro-B Natriuret Pep (0-1800) pg/ml Total Protein (6.4-8.2) gm/dl Albumin (3.4-5.0) gm/dl Globulin (2.5-4.0) gm/dl Albumin/Globulin Ratio (0.9-2) Vitamin B12 (211-911) pg/ml Folate (>5.38) ng/ml Beta-Hydroxybutyric Acd (0.2-2.81) mg/dl TSH (0.300-4.500) uIu/ml Free T4 (0.8-1.6) ng/dl Total T3 (0.60-1.81) ng/ml Urine Color Urine Appearance (Clear) Urine pH (4.5-7.5) Ur Specific [place] (1.000-1.030) Urine Protein (Negative) Urine Glucose (UA) (Negative) Urine Ketones (Negative) Urine Blood (Negative) Urine Nitrite (Negative) Urine Bilirubin (Negative) Urine Urobilinogen (Negative) Ur Leukocyte Esterase (Negative) Influenza Type A (PCR) (Neg) Influenza Type B (PCR) (Neg) Blood Type Antibody Screen 06/04/19 06/04/19 06/04/19 Range/Units 06:07 05:08 03:01 WBC (4.8-10.8) K/uL RBC (4.2-5.4) M/uL Hgb (12.0-16.0) g/dL POC Hgb (12.0-16.0) g/dl Hct (37-47) % POC Hct (37-47) % MCV (80-100) fL MCH (25-34) pg MCHC (32-36) g/dL RDW Std Deviation (36.4-46.3) fL RDW Coeff of Gal (11.5-14.5) % Plt Count (130-400) K/uL MPV (7.4-10.4) fL Immature Gran % (Auto) % Neut % (Auto) % Lymph % (Auto) % Dickenson % (Auto) % Eos % (Auto) % Baso % (Auto) % Reticulocyte % (Auto) (0.5-2.0) % Immature Gran # (Auto) (0.00-0.02) K/uL Neut # (Auto) (1.4-6.5) K/uL Lymph # (Auto) (1.2-3.4) K/uL [place] # (Auto) (0.11-0.59) K/uL Eos # (Auto) (0-0.5) K/uL Baso # (Auto) (0-0.2) K/uL Reticulocyte # (0.02-0.10) 10^6/uL RBC Morphology Basophilic Stippling APTT (21.0-31.0) Seconds PTT Ratio ABG pH 7.31 L (7.35-7.45) ABG pCO2 74 H (35-46) mmHg ABG pO2 135 H (80-95) mm/Hg ABG HCO3 36 H (19-24) mmol/L ABG O2 Saturation 98.0 H (90-95) % ABG Base Excess 7.7 H (-9-1.8) mEq/L Hiro Test Pos (Pos) VBG pH (7.36-7.41) VBG pCO2 (38-50) mmHg VBG pO2 mmHg VBG HCO3 mmol/L VBG O2 Saturation % VBG Base Excess mEq/L Barometric Pressure 733.1 mm/Hg Oxygen Given 40% POC Sodium (135-144) mEq/L Sodium 141 (136-145) mmol/L POC Potassium (3.3-5.0) mEq/L Potassium 4.6 (3.5-5.1) mmol/L POC Chloride (101-112) mEq/L Chloride 106 (98-107) mmol/L Carbon Dioxide 35 H (21-32) mmol/L POC Total CO2 (24-31) mEq/l Anion Gap 0 L (3-11) POC Anion Gap (16-25) mmol/L POC BUN (7-18) mg/dl BUN 37 H (7-18) mg/dl Creatinine 1.00 (0.6-1.2) mg/dl POC Creatinine (0.6-1.3) mg/dl Est Cr Clr Drug Dosing 66.7 ml/min Est GFR ( Amer) 62.9 Est GFR (Non-Af Amer) 54.3 BUN/Creatinine Ratio 37.4 H (10-20) Glucose 220 H (70-99) mg/dl POC Glucose 240 H (70-99) POC Glucose (other) (70-99) mg/dl Estimat Average Glucose mg/dl Hemoglobin A1c (4.5-5.6) % Lactate (0.4-2.0) mmol/L Calcium 8.9 (8.5-10.1) mg/dl POC Ioniz Calcium Falguni (1.12-1.32) mmol/l Magnesium (1.8-2.4) mg/dl Iron (35-150) mcg/dl TIBC 263 (250-450) mcg/dl Transferrin 145 L (200-360) mg/dl Ferritin 175.8 (8-388) ng/ml Total Bilirubin (0.2-1) mg/dl AST (15-37) U/L ALT (12-78) U/L Alkaline Phosphatase (45-117) U/L Troponin I (0-0.045) ng/ml NT-Pro-B Natriuret Pep (0-1800) pg/ml Total Protein (6.4-8.2) gm/dl Albumin (3.4-5.0) gm/dl Globulin (2.5-4.0) gm/dl Albumin/Globulin Ratio (0.9-2) Vitamin B12 (211-911) pg/ml Folate (>5.38) ng/ml Beta-Hydroxybutyric Acd (0.2-2.81) mg/dl TSH (0.300-4.500) uIu/ml Free T4 (0.8-1.6) ng/dl Total T3 (0.60-1.81) ng/ml Urine Color Urine Appearance (Clear) Urine pH (4.5-7.5) Ur Specific [place] (1.000-1.030) Urine Protein (Negative) Urine Glucose (UA) (Negative) Urine Ketones (Negative) Urine Blood (Negative) Urine Nitrite (Negative) Urine Bilirubin (Negative) Urine Urobilinogen (Negative) Ur Leukocyte Esterase (Negative) Influenza Type A (PCR) (Neg) Influenza Type B (PCR) (Neg) Blood Type Antibody Screen 06/04/19 06/04/19 06/04/19 Range/Units 03:01 02:46 02:46 WBC 8.90 (4.8-10.8) K/uL RBC 3.23 L (4.2-5.4) M/uL Hgb 8.9 L (12.0-16.0) g/dL POC Hgb (12.0-16.0) g/dl Hct 30.7 L (37-47) % POC Hct (37-47) % MCV 95.0 (80-100) fL MCH 27.6 (25-34) pg MCHC 29.0 L (32-36) g/dL RDW Std Deviation 60.0 H (36.4-46.3) fL RDW Coeff of Gal 17.2 H (11.5-14.5) % Plt Count 253 (130-400) K/uL MPV 8.9 (7.4-10.4) fL Immature Gran % (Auto) 6.9 % Neut % (Auto) 82.5 % Lymph % (Auto) 4.6 % Dickenson % (Auto) 5.8 % Eos % (Auto) 0.0 % Baso % (Auto) 0.2 % Reticulocyte % (Auto) 1.5 (0.5-2.0) % Immature Gran # (Auto) 0.61 H (0.00-0.02) K/uL Neut # (Auto) 7.34 H (1.4-6.5) K/uL Lymph # (Auto) 0.41 L (1.2-3.4) K/uL [place] # (Auto) 0.52 (0.11-0.59) K/uL Eos # (Auto) 0.00 (0-0.5) K/uL Baso # (Auto) 0.02 (0-0.2) K/uL Reticulocyte # 0.05 (0.02-0.10) 10^6/uL RBC Morphology Unremarkable Basophilic Stippling APTT (21.0-31.0) Seconds PTT Ratio ABG pH (7.35-7.45) ABG pCO2 (35-46) mmHg ABG pO2 (80-95) mm/Hg ABG HCO3 (19-24) mmol/L ABG O2 Saturation (90-95) % ABG Base Excess (-9-1.8) mEq/L Hiro Test (Pos) VBG pH (7.36-7.41) VBG pCO2 (38-50) mmHg VBG pO2 mmHg VBG HCO3 mmol/L VBG O2 Saturation % VBG Base Excess mEq/L Barometric Pressure mm/Hg Oxygen Given POC Sodium (135-144) mEq/L Sodium (136-145) mmol/L POC Potassium (3.3-5.0) mEq/L Potassium (3.5-5.1) mmol/L POC Chloride (101-112) mEq/L Chloride (98-107) mmol/L Carbon Dioxide (21-32) mmol/L POC Total CO2 (24-31) mEq/l Anion Gap (3-11) POC Anion Gap (16-25) mmol/L POC BUN (7-18) mg/dl BUN (7-18) mg/dl Creatinine (0.6-1.2) mg/dl POC Creatinine (0.6-1.3) mg/dl Est Cr Clr Drug Dosing ml/min Est GFR ( Amer) Est GFR (Non-Af Amer) BUN/Creatinine Ratio (10-20) Glucose (70-99) mg/dl POC Glucose (70-99) POC Glucose (other) (70-99) mg/dl Estimat Average Glucose mg/dl Hemoglobin A1c (4.5-5.6) % Lactate (0.4-2.0) mmol/L Calcium (8.5-10.1) mg/dl POC Ioniz Calcium Falguni (1.12-1.32) mmol/l Magnesium (1.8-2.4) mg/dl Iron (35-150) mcg/dl TIBC (250-450) mcg/dl Transferrin (200-360) mg/dl Ferritin (8-388) ng/ml Total Bilirubin (0.2-1) mg/dl AST (15-37) U/L ALT (12-78) U/L Alkaline Phosphatase (45-117) U/L Troponin I (0-0.045) ng/ml NT-Pro-B Natriuret Pep (0-1800) pg/ml Total Protein (6.4-8.2) gm/dl Albumin (3.4-5.0) gm/dl Globulin (2.5-4.0) gm/dl Albumin/Globulin Ratio (0.9-2) Vitamin B12 > 2000 H (211-911) pg/ml Folate 15.56 (>5.38) ng/ml Beta-Hydroxybutyric Acd (0.2-2.81) mg/dl TSH (0.300-4.500) uIu/ml Free T4 (0.8-1.6) ng/dl Total T3 (0.60-1.81) ng/ml Urine Color Urine Appearance (Clear) Urine pH (4.5-7.5) Ur Specific [place] (1.000-1.030) Urine Protein (Negative) Urine Glucose (UA) (Negative) Urine Ketones (Negative) Urine Blood (Negative) Urine Nitrite (Negative) Urine Bilirubin (Negative) Urine Urobilinogen (Negative) Ur Leukocyte Esterase (Negative) Influenza Type A (PCR) (Neg) Influenza Type B (PCR) (Neg) Blood Type A Positive Antibody Screen NEGATIVE 06/04/19 06/04/19 06/04/19 Range/Units 02:46 01:57 01:30 WBC (4.8-10.8) K/uL RBC (4.2-5.4) M/uL Hgb (12.0-16.0) g/dL POC Hgb (12.0-16.0) g/dl Hct (37-47) % POC Hct (37-47) % MCV (80-100) fL MCH (25-34) pg MCHC (32-36) g/dL RDW Std Deviation (36.4-46.3) fL RDW Coeff of Gal (11.5-14.5) % Plt Count (130-400) K/uL MPV (7.4-10.4) fL Immature Gran % (Auto) % Neut % (Auto) % Lymph % (Auto) % [place] % (Auto) % Eos % (Auto) % Baso % (Auto) % Reticulocyte % (Auto) (0.5-2.0) % Immature Gran # (Auto) (0.00-0.02) K/uL Neut # (Auto) (1.4-6.5) K/uL Lymph # (Auto) (1.2-3.4) K/uL [place] # (Auto) (0.11-0.59) K/uL Eos # (Auto) (0-0.5) K/uL Baso # (Auto) (0-0.2) K/uL Reticulocyte # (0.02-0.10) 10^6/uL RBC Morphology Basophilic Stippling APTT (21.0-31.0) Seconds PTT Ratio ABG pH 7.34 L (7.35-7.45) ABG pCO2 67 H (35-46) mmHg ABG pO2 85 (80-95) mm/Hg ABG HCO3 36 H (19-24) mmol/L ABG O2 Saturation 96.0 H (90-95) % ABG Base Excess 8.1 H (-9-1.8) mEq/L Hiro Test Pos (Pos) VBG pH (7.36-7.41) VBG pCO2 (38-50) mmHg VBG pO2 mmHg VBG HCO3 mmol/L VBG O2 Saturation % VBG Base Excess mEq/L Barometric Pressure 733.9 mm/Hg Oxygen Given 3L O2 POC Sodium (135-144) mEq/L Sodium (136-145) mmol/L POC Potassium (3.3-5.0) mEq/L Potassium (3.5-5.1) mmol/L POC Chloride (101-112) mEq/L Chloride (98-107) mmol/L Carbon Dioxide (21-32) mmol/L POC Total CO2 (24-31) mEq/l Anion Gap (3-11) POC Anion Gap (16-25) mmol/L POC BUN (7-18) mg/dl BUN (7-18) mg/dl Creatinine (0.6-1.2) mg/dl POC Creatinine (0.6-1.3) mg/dl Est Cr Clr Drug Dosing ml/min Est GFR ( Amer) Est GFR (Non-Af Amer) BUN/Creatinine Ratio (10-20) Glucose (70-99) mg/dl POC Glucose (70-99) POC Glucose (other) (70-99) mg/dl Estimat Average Glucose mg/dl Hemoglobin A1c (4.5-5.6) % Lactate (0.4-2.0) mmol/L Calcium (8.5-10.1) mg/dl POC Ioniz Calcium [place]i (1.12-1.32) mmol/l Magnesium (1.8-2.4) mg/dl Iron (35-150) mcg/dl TIBC (250-450) mcg/dl Transferrin (200-360) mg/dl Ferritin (8-388) ng/ml Total Bilirubin (0.2-1) mg/dl AST (15-37) U/L ALT (12-78) U/L Alkaline Phosphatase (45-117) U/L Troponin I (0-0.045) ng/ml NT-Pro-B Natriuret Pep (0-1800) pg/ml Total Protein (6.4-8.2) gm/dl Albumin (3.4-5.0) gm/dl Globulin (2.5-4.0) gm/dl Albumin/Globulin Ratio (0.9-2) Vitamin B12 (211-911) pg/ml Folate (>5.38) ng/ml Beta-Hydroxybutyric Acd (0.2-2.81) mg/dl TSH (0.300-4.500) uIu/ml Free T4 (0.8-1.6) ng/dl Total T3 (0.60-1.81) ng/ml Urine Color Yellow Urine Appearance Clear (Clear) Urine pH 5.0 (4.5-7.5) Ur Specific [place] 1.031 H (1.000-1.030) Urine Protein Negative (Negative) Urine Glucose (UA) 1+ H (Negative) Urine Ketones Negative (Negative) Urine Blood Negative (Negative) Urine Nitrite Negative (Negative) Urine Bilirubin Negative (Negative) Urine Urobilinogen Negative (Negative) Ur Leukocyte Esterase Negative (Negative) Influenza Type A (PCR) Neg for Influ A (Neg) Influenza Type B (PCR) Neg for Influ B (Neg) Blood Type Antibody Screen 06/03/19 06/03/19 06/03/19 Range/Units 23:23 22:50 22:16 WBC (4.8-10.8) K/uL RBC (4.2-5.4) M/uL Hgb (12.0-16.0) g/dL POC Hgb 9.2 L (12.0-16.0) g/dl Hct (37-47) % POC Hct 27 L (37-47) % MCV (80-100) fL MCH (25-34) pg MCHC (32-36) g/dL RDW Std Deviation (36.4-46.3) fL RDW Coeff of Gal (11.5-14.5) % Plt Count (130-400) K/uL MPV (7.4-10.4) fL Immature Gran % (Auto) % Neut % (Auto) % Lymph % (Auto) % [place] % (Auto) % Eos % (Auto) % Baso % (Auto) % Reticulocyte % (Auto) (0.5-2.0) % Immature Gran # (Auto) (0.00-0.02) K/uL Neut # (Auto) (1.4-6.5) K/uL Lymph # (Auto) (1.2-3.4) K/uL [place] # (Auto) (0.11-0.59) K/uL Eos # (Auto) (0-0.5) K/uL Baso # (Auto) (0-0.2) K/uL Reticulocyte # (0.02-0.10) 10^6/uL RBC Morphology Basophilic Stippling APTT (21.0-31.0) Seconds PTT Ratio ABG pH (7.35-7.45) ABG pCO2 (35-46) mmHg ABG pO2 (80-95) mm/Hg ABG HCO3 (19-24) mmol/L ABG O2 Saturation (90-95) % ABG Base Excess (-9-1.8) mEq/L Hiro Test (Pos) VBG pH 7.32 L (7.36-7.41) VBG pCO2 75 H (38-50) mmHg VBG pO2 168 mmHg VBG HCO3 38 mmol/L VBG O2 Saturation 99.0 % VBG Base Excess 9.7 mEq/L Barometric Pressure 734.1 mm/Hg Oxygen Given POC Sodium 140 (135-144) mEq/L Sodium (136-145) mmol/L POC Potassium 5.1 H (3.3-5.0) mEq/L Potassium (3.5-5.1) mmol/L POC Chloride 99 L (101-112) mEq/L Chloride (98-107) mmol/L Carbon Dioxide (21-32) mmol/L POC Total CO2 36 H (24-31) mEq/l Anion Gap (3-11) POC Anion Gap 11.0 L (16-25) mmol/L POC BUN 36 H (7-18) mg/dl BUN (7-18) mg/dl Creatinine (0.6-1.2) mg/dl POC Creatinine 1.1 (0.6-1.3) mg/dl Est Cr Clr Drug Dosing ml/min Est GFR ( Amer) Est GFR (Non-Af Amer) BUN/Creatinine Ratio (10-20) Glucose (70-99) mg/dl POC Glucose 373 H* (70-99) POC Glucose (other) 425 H* (70-99) mg/dl Estimat Average Glucose mg/dl Hemoglobin A1c (4.5-5.6) % Lactate (0.4-2.0) mmol/L Calcium (8.5-10.1) mg/dl POC Ioniz Calcium [place] 1.24 (1.12-1.32) mmol/l Magnesium (1.8-2.4) mg/dl Iron (35-150) mcg/dl TIBC (250-450) mcg/dl Transferrin (200-360) mg/dl Ferritin (8-388) ng/ml Total Bilirubin (0.2-1) mg/dl AST (15-37) U/L ALT (12-78) U/L Alkaline Phosphatase (45-117) U/L Troponin I (0-0.045) ng/ml NT-Pro-B Natriuret Pep (0-1800) pg/ml Total Protein (6.4-8.2) gm/dl Albumin (3.4-5.0) gm/dl Globulin (2.5-4.0) gm/dl Albumin/Globulin Ratio (0.9-2) Vitamin B12 (211-911) pg/ml Folate (>5.38) ng/ml Beta-Hydroxybutyric Acd (0.2-2.81) mg/dl TSH (0.300-4.500) uIu/ml Free T4 (0.8-1.6) ng/dl Total T3 (0.60-1.81) ng/ml Urine Color Urine Appearance (Clear) Urine pH (4.5-7.5) Ur Specific [place] (1.000-1.030) Urine Protein (Negative) Urine Glucose (UA) (Negative) Urine Ketones (Negative) Urine Blood (Negative) Urine Nitrite (Negative) Urine Bilirubin (Negative) Urine Urobilinogen (Negative) Ur Leukocyte Esterase (Negative) Influenza Type A (PCR) (Neg) Influenza Type B (PCR) (Neg) Blood Type Antibody Screen 06/03/19 06/03/19 06/03/19 Range/Units 21:57 21:57 21:57 WBC (4.8-10.8) K/uL RBC (4.2-5.4) M/uL Hgb (12.0-16.0) g/dL POC Hgb (12.0-16.0) g/dl Hct (37-47) % POC Hct (37-47) % MCV (80-100) fL MCH (25-34) pg MCHC (32-36) g/dL RDW Std Deviation (36.4-46.3) fL RDW Coeff of Gal (11.5-14.5) % Plt Count (130-400) K/uL MPV (7.4-10.4) fL Immature Gran % (Auto) % Neut % (Auto) % Lymph % (Auto) % [place] % (Auto) % Eos % (Auto) % Baso % (Auto) % Reticulocyte % (Auto) (0.5-2.0) % Immature Gran # (Auto) (0.00-0.02) K/uL Neut # (Auto) (1.4-6.5) K/uL Lymph # (Auto) (1.2-3.4) K/uL [place] # (Auto) (0.11-0.59) K/uL Eos # (Auto) (0-0.5) K/uL Baso # (Auto) (0-0.2) K/uL Reticulocyte # (0.02-0.10) 10^6/uL RBC Morphology Basophilic Stippling APTT 23.9 (21.0-31.0) Seconds PTT Ratio 0.9 ABG pH (7.35-7.45) ABG pCO2 (35-46) mmHg ABG pO2 (80-95) mm/Hg ABG HCO3 (19-24) mmol/L ABG O2 Saturation (90-95) % ABG Base Excess (-9-1.8) mEq/L Hiro Test (Pos) VBG pH (7.36-7.41) VBG pCO2 (38-50) mmHg VBG pO2 mmHg VBG HCO3 mmol/L VBG O2 Saturation % VBG Base Excess mEq/L Barometric Pressure mm/Hg Oxygen Given POC Sodium (135-144) mEq/L Sodium (136-145) mmol/L POC Potassium (3.3-5.0) mEq/L Potassium (3.5-5.1) mmol/L POC Chloride (101-112) mEq/L Chloride (98-107) mmol/L Carbon Dioxide (21-32) mmol/L POC Total CO2 (24-31) mEq/l Anion Gap (3-11) POC Anion Gap (16-25) mmol/L POC BUN (7-18) mg/dl BUN (7-18) mg/dl Creatinine (0.6-1.2) mg/dl POC Creatinine (0.6-1.3) mg/dl Est Cr Clr Drug Dosing ml/min Est GFR ( Amer) Est GFR (Non-Af Amer) BUN/Creatinine Ratio (10-20) Glucose (70-99) mg/dl POC Glucose (70-99) POC Glucose (other) (70-99) mg/dl Estimat Average Glucose 180 mg/dl Hemoglobin A1c 7.9 H (4.5-5.6) % Lactate (0.4-2.0) mmol/L Calcium (8.5-10.1) mg/dl POC Ioniz Calcium [place] (1.12-1.32) mmol/l Magnesium (1.8-2.4) mg/dl Iron (35-150) mcg/dl TIBC (250-450) mcg/dl Transferrin (200-360) mg/dl Ferritin (8-388) ng/ml Total Bilirubin (0.2-1) mg/dl AST (15-37) U/L ALT (12-78) U/L Alkaline Phosphatase (45-117) U/L Troponin I (0-0.045) ng/ml NT-Pro-B Natriuret Pep (0-1800) pg/ml Total Protein (6.4-8.2) gm/dl Albumin (3.4-5.0) gm/dl Globulin (2.5-4.0) gm/dl Albumin/Globulin Ratio (0.9-2) Vitamin B12 (211-911) pg/ml Folate (>5.38) ng/ml Beta-Hydroxybutyric Acd (0.2-2.81) mg/dl TSH (0.300-4.500) uIu/ml Free T4 (0.8-1.6) ng/dl Total T3 0.41 L (0.60-1.81) ng/ml Urine Color Urine Appearance (Clear) Urine pH (4.5-7.5) Ur Specific [place] (1.000-1.030) Urine Protein (Negative) Urine Glucose (UA) (Negative) Urine Ketones (Negative) Urine Blood (Negative) Urine Nitrite (Negative) Urine Bilirubin (Negative) Urine Urobilinogen (Negative) Ur Leukocyte Esterase (Negative) Influenza Type A (PCR) (Neg) Influenza Type B (PCR) (Neg) Blood Type Antibody Screen 06/03/19 06/03/19 06/03/19 Range/Units 21:57 21:57 21:57 WBC 7.78 (4.8-10.8) K/uL RBC 3.24 L (4.2-5.4) M/uL Hgb 9.1 L (12.0-16.0) g/dL POC Hgb (12.0-16.0) g/dl Hct 30.7 L (37-47) % POC Hct (37-47) % MCV 94.8 (80-100) fL MCH 28.1 (25-34) pg MCHC 29.6 L (32-36) g/dL RDW Std Deviation 60.0 H (36.4-46.3) fL RDW Coeff of Gal 17.3 H (11.5-14.5) % Plt Count 233 (130-400) K/uL MPV 9.5 (7.4-10.4) fL Immature Gran % (Auto) 8.5 % Neut % (Auto) 76.1 % Lymph % (Auto) 10.5 % [place] % (Auto) 4.6 % Eos % (Auto) 0.0 % Baso % (Auto) 0.3 % Reticulocyte % (Auto) (0.5-2.0) % Immature Gran # (Auto) 0.66 H (0.00-0.02) K/uL Neut # (Auto) 5.92 (1.4-6.5) K/uL Lymph # (Auto) 0.82 L (1.2-3.4) K/uL [place] # (Auto) 0.36 (0.11-0.59) K/uL Eos # (Auto) 0.00 (0-0.5) K/uL Baso # (Auto) 0.02 (0-0.2) K/uL Reticulocyte # (0.02-0.10) 10^6/uL RBC Morphology Basophilic Stippling 1+ APTT (21.0-31.0) Seconds PTT Ratio ABG pH (7.35-7.45) ABG pCO2 (35-46) mmHg ABG pO2 (80-95) mm/Hg ABG HCO3 (19-24) mmol/L ABG O2 Saturation (90-95) % ABG Base Excess (-9-1.8) mEq/L Hiro Test (Pos) VBG pH (7.36-7.41) VBG pCO2 (38-50) mmHg VBG pO2 mmHg VBG HCO3 mmol/L VBG O2 Saturation % VBG Base Excess mEq/L Barometric Pressure mm/Hg Oxygen Given POC Sodium (135-144) mEq/L Sodium 141 (136-145) mmol/L POC Potassium (3.3-5.0) mEq/L Potassium 5.1 (3.5-5.1) mmol/L POC Chloride (101-112) mEq/L Chloride 103 (98-107) mmol/L Carbon Dioxide 36 H (21-32) mmol/L POC Total CO2 (24-31) mEq/l Anion Gap 2.0 L (3-11) POC Anion Gap (16-25) mmol/L POC BUN (7-18) mg/dl BUN 40 H (7-18) mg/dl Creatinine 1.12 (0.6-1.2) mg/dl POC Creatinine (0.6-1.3) mg/dl Est Cr Clr Drug Dosing 59.6 ml/min Est GFR ( Amer) 54.9 Est GFR (Non-Af Amer) 47.3 BUN/Creatinine Ratio 35.8 H (10-20) Glucose 417 H* (70-99) mg/dl POC Glucose (70-99) POC Glucose (other) (70-99) mg/dl Estimat Average Glucose mg/dl Hemoglobin A1c (4.5-5.6) % Lactate 1.2 (0.4-2.0) mmol/L Calcium 8.7 (8.5-10.1) mg/dl POC Ioniz Calcium [place] (1.12-1.32) mmol/l Magnesium 2.1 (1.8-2.4) mg/dl Iron 44 (35-150) mcg/dl TIBC (250-450) mcg/dl Transferrin (200-360) mg/dl Ferritin (8-388) ng/ml Total Bilirubin 0.3 (0.2-1) mg/dl AST 7 L (15-37) U/L ALT 17 (12-78) U/L Alkaline Phosphatase 91 (45-117) U/L Troponin I < 0.015 (0-0.045) ng/ml NT-Pro-B Natriuret Pep 2412 H (0-1800) pg/ml Total Protein 6.4 (6.4-8.2) gm/dl Albumin 2.1 L (3.4-5.0) gm/dl Globulin 4.3 H (2.5-4.0) gm/dl Albumin/Globulin Ratio 0.5 L (0.9-2) Vitamin B12 (211-911) pg/ml Folate (>5.38) ng/ml Beta-Hydroxybutyric Acd 0.78 (0.2-2.81) mg/dl TSH 0.274 L (0.300-4.500) uIu/ml Free T4 1.34 (0.8-1.6) ng/dl Total T3 (0.60-1.81) ng/ml Urine Color Urine Appearance (Clear) Urine pH (4.5-7.5) Ur Specific [place] (1.000-1.030) Urine Protein (Negative) Urine Glucose (UA) (Negative) Urine Ketones (Negative) Urine Blood (Negative) Urine Nitrite (Negative) Urine Bilirubin (Negative) Urine Urobilinogen (Negative) Ur Leukocyte Esterase (Negative) Influenza Type A (PCR) (Neg) Influenza Type B (PCR) (Neg) Blood Type Antibody Screen Diagnostic Findings Prelim echo report - preserved LV systolic function around 65%, diastolic dysfunction Chest CTA on admission: IMPRESSION: 1. Limited study due to body habitus considerations. 2. No evidence for major central pulmonary embolus. 3. Bibasilar atelectasis/trace pleural effusions. Chest xray IMPRESSION: 1. Cardiomegaly with evidence of congestive failure. 2. Small pleural effusions with bibasilar consolidation: Medications Administered Current Inpatient Medications Acetaminophen (Tylenol) 650 mg PO Q4H PRN PRN Reason: Pain or Fever Stop: 07/04/19 04:46 Allopurinol (Zyloprim) 100 mg PO DAILY [facility] Stop: 07/04/19 08:59 Last Admin: 06/04/19 08:40 Dose: 100 mg Documented by: Budesonide/Formoterol Fumarate (Symbicort 160mcg/4.5mcg) 2 puffs INH BID DAILY Stop: 07/04/19 08:59 Last Admin: 06/04/19 08:40 Dose: 2 puffs Documented by: Dextrose (Dextrose 50%) 25 - 50 ml IV UD PRN; Protocol PRN Reason: Hypoglycemia Protocol Stop: 07/04/19 04:46 Enoxaparin Sodium (Lovenox) 40 mg SQ QAM DAILY Stop: 07/04/19 08:59 Last Admin: 06/04/19 08:40 Dose: 40 mg Documented by: Glucagon (Glucagen) 1 mg SQ UD PRN; Protocol PRN Reason: Hypoglycemia Protocol Stop: 07/04/19 04:46 Glucose (Dex4 Glucose) 4 - 8 tabs PO UD PRN; Protocol PRN Reason: Hypoglycemia Protocol Stop: 07/04/19 04:46 Glucose (Glucose 40%) 15 - 30 gm PO UD PRN; Protocol PRN Reason: Hypoglycemia Protocol Stop: 07/04/19 04:46 Promethazine HCl 12.5 mg/ (Sodium Chloride) 50.5 mls @ 202 mls/hr IV Q6H PRN PRN Reason: Nausea And Vomiting Stop: 07/04/19 04:46 Furosemide 40 mg/ Syringe 4 mls @ 4 mls/min IV BID17 DAILY Stop: 06/04/19 17:00 Last Admin: 06/04/19 08:39 Dose: 4 mls/min Documented by: Insulin Aspart (Novolog Flexpen) 0 units SC ACHS DAILY Stop: 07/04/19 04:46 Last Admin: 06/04/19 12:23 Dose: 6 units Documented by: Insulin Glargine (Lantus Solostar Pen) 20 units SQ DAILY DAILY Stop: 07/05/19 08:59 Ipratropium [place] (Atrovent 0.02% 0.5mg/2.5ml) 0.5 mg INH Q4H PRN PRN Reason: SOB/WHEEZING Stop: 07/04/19 04:46 Levalbuterol HCl (Xopenex 1.25mg/0.5ml Neb) 1.25 mg INH Q4H PRN PRN Reason: SOB/WHEEZING Stop: 07/04/19 04:46 Levothyroxine Sodium (Synthroid) 150 mcg PO DAILYBB [facility] Stop: 07/04/19 06:29 Last Admin: 06/04/19 05:47 Dose: 150 mcg Documented by: Lisinopril (Zestril) 2.5 mg PO QAM [facility] Stop: 07/04/19 04:09 Last Admin: 06/04/19 05:10 Dose: 2.5 mg Documented by: Metoprolol Tartrate (Lopressor) 25 mg PO BID [facility] Stop: 07/04/19 08:59 Last Admin: 06/04/19 08:40 Dose: 25 mg Documented by: Miscellaneous (Carbohydrates For Hypoglycemia) 15 - 30 gm PO UD PRN PRN Reason: Hypoglycemia Protocol Stop: 07/04/19 04:46 Nitroglycerin (Nitrostat) 0.4 mg SL UD PRN PRN Reason: Chest Pain Stop: 07/04/19 04:46 Prednisone (Prednisone) 10 mg PO DAILY DAILY Stop: 06/06/19 08:59 Last Admin: 06/04/19 10:38 Dose: 10 mg Documented by: Tramadol HCl (Ultram) 25 mg PO Q4H PRN PRN Reason: Pain Stop: 07/04/19 04:46 Vitamin B Complex (Vitamin B Complex) 1 tab PO DAILY DAILY Stop: 07/04/19 08:59 Last Admin: 06/04/19 08:40 Dose: 1 tab Documented by:
[2019-06-05] MEDS: LEVOTHYROXINE SODIUM 150 MCG TABLET PO SCH (06:47)
[2019-06-05 07:07] LABS: BUN Creatinine Ratio 35.4 (10-20); Calcium 8.7 mg/dl (8.5-10.1); Creatinine Clr Calc Pharmacy 47.1 ml/min; Est GFR (African American) 49.5; Est GFR (Non-African American) 42.7; Potassium 4.8 mmol/L (3.5-5.1)
[2019-06-05 07:23] LABS: Basophils # (auto) 0.02 K/uL (0-0.2); Basophils % (auto) 0.2 %; Hematocrit (blood only) 29.9 % (37-47); Hemoglobin 8.8 g/dL (12.0-16.0); Immature Granulocytes # (auto) 0.37 K/uL (0.00-0.02); Immature Granulocytes % (auto) 4.5 %; Lymphocytes # (auto) 1.69 K/uL (1.2-3.4); Lymphocytes % (auto) 20.5 %; Mean Corpuscular Volume 95.2 fL (80-100); Mean Platelet Volume 9.1 fL (7.4-10.4); Monocytes # (auto) 0.56 K/uL (0.11-0.59); Monocytes % (auto) 6.8 %; Platelet Count 216 K/uL (130-400); RDW Coefficient of Variation 17.8 % (11.5-14.5); Red Blood Count 3.14 M/uL (4.2-5.4); White Blood Count 8.24 K/uL (4.8-10.8)
[2019-06-05 07:31] LABS: Mean Corpuscular Hgb Conc 29.4 g/dL (32-36)
[2019-06-05] MEDS: allopurinoL 100 MG TAB PO SCH (07:57)
[2019-06-05] MEDS: predniSONE 10 MG TABLET PO SCH (07:58)
[2019-06-05] MEDS: BUDESONIDE/FORMOTEROL FUMARATE 160/4.5 60 PUFFS/INHALER INH SCH ×2 (07:58→20:30)
[2019-06-05] MEDS: METOPROLOL TARTRATE 25 MG TAB PO SCH ×2 (07:58→20:30)
[2019-06-05] MEDS: VITAMIN B COMPLEX TAB PO SCH (07:58)
[2019-06-05] MEDS: ENOXAPARIN INJ 40 MG/0.4 ML SYR SQ SCH (07:58)
[2019-06-05] MEDS: INSULIN ASPART 100 UNITS/ML 3 ML PEN SC SCH ×4 (07:58→20:32)
[2019-06-05] MEDS: INSULIN GLARGINE SOLOSTAR 100 UNITS/ML 3 ML PEN SQ SCH (08:00)
--- NOTE | 2019-06-05 12:22 | Hospitalist Progress Note ---
Date of Service June 05, 2019 Assessment & Plan (1) Acute and chronic respiratory failure with hypercapnia: Possible secondary with CHF exacerbation due to fluid overload post blood transfusion last week CXR showed cardiomegaly with evidence of congestive failure. Small pleural effusions with bibasilar consolidation. CTA showed no evidence for major central pulmonary embolus. Bibasilar atelectasis/trace pleural effusions. ABG on admission showed PCO2 68 (possible she is CO2 retainer) Influenza negative Received Lasix 40mg IV and solumedrol on admission Was placed on Bipap, then transition on NC now Continue neb treatment, outpatient prednisone and Symbicort Continue oxygen supplement Continue Monitor closely Acute diastolic CHF CXR showed evidence of congestive failure ProBNP on admission 2412 received IV lasix 40mg on admission Echo showed moderate concentric left ventricular hypertrophy. No wall motion abnormality with ejection fraction 65 to 70%. Diastolic dysfunction grade 2 Was on lasix 40mg BID IV, discontinued today Net output only about 200cc Creatinine mildly elevated Will discuss with cardiology for additional IV lasix today Monitor BMP while on IV lasix continue monitor in tele Fluid restriction Diabetes type 2 Hyperglycemia due to steroid Recent HbA1c 7.9 Continue lantus and novolog sliding scale Continue monitor BS Hypertension BP elevated Continue Lisinopril 2.5 mg daily Continue metoprolol Monitor BP Endometrial cancer Status post surgery Currently undergoing Chemo q21 days Next chemo schedule on Friday after evaluating with oncology Hypothyroidism TSH 0.27 Continue Levothyroxine Will need to repeat TSH in 4 weeks Decubitus ulcer Continue daily wound care wound care on board Chronic anemia Received 1 unit PRBC last week Hgb 8.8 today Continue monitor CBC Generalized weakness fall precaution PT/OT DVT px on Lovenox Code status Full code Disposition Continue monitor in tele Patient's requesting updates from providers. Mr. Tal Britt, contact #[phone]. Subjective Pt was seen and examined Lying in bed with no distress Pt said that her breathing slightly improved today Denies any chest pain, palpitation, dizziness and fever Physical Exam Physical Exam: General- No acute distress Head- atraumatic Eyes- PERRL, EOMI, ENT- oropharynx clear Neck- supple, no JVD Lungs- diminished BS Heart- regular rhythm; no murmur Abdomen- normal bowel sounds, soft, nontender Extremities- no calf tenderness, +edema Neuro- alert, oriented x 3; PERRL, EOMI; no facial palsy; no dysarthria Skin- warm & dry, decubitus ulcer Results & Data Vital Signs (Past 12 Hours) Vital Signs Temp Pulse Pulse Resp BP Pulse Ox 06/05/19 11:27 36.4 C L 55 L 19 115/67 97 06/05/19 07:28 36.6 C 61 19 131/71 98 06/05/19 07:24 68 06/05/19 02:52 36.5 C 65 16 157/75 H 97
--- NOTE | 2019-06-05 13:43 | Cardiology Progress Note ---
Date of Service June 05, 2019 Assessment & Plan (1) Acute and chronic respiratory failure with hypercapnia: Clinically improved today with mild diuresis overnight. Lasix placed on hold this a.m. Will restart with 40 mg x 1 now. Continue to follow fluid balance, daily weight, and GFR. History of recent anemia requiring transfusion. Hemoglobin remained stable. (2) Acute on chronic diastolic heart failure with preserved ejection fraction: Preserved LV systolic function per echocardiogram. No significant valvular pathology. (3) Hypertension: Blood pressure well controlled. Continue furosemide, metoprolol, lisinopril Subjective Patient seen and examined at the bedside. Respiratory status unchanged. 2 salvos of atrial tachycardia recorded on telemetry overnight without associated symptoms. Fluid balance negative approximately 600 cc. Creatinine trending upward slightly. No significant peripheral edema on exam. Denies chest pain or palpitations. Offers no concerns/complaints this time. Review of Systems Review of Systems: All systems reviewed & are unremarkable except as noted in HPI & below Physical Exam Constitutional: + morbidly obese Cardiovascular: Rate/Rhythm: regular rate Heart Sounds: normal S1 and normal S2; no murmur Extremities: no edema Gastrointestinal (Abdomen): Inspection/Auscultation: abdomen normal to inspection and normal bowel sounds; abdomen not distended Percussion/Palpation: abdomen soft; abdomen nontender, no guarding and abdomen not rigid Neurologic: PERRL, EOMI, accommodation nl, no face palsy, no dysarthria Results & Data Vital Signs (Past 12 Hours) Vital Signs Temp Pulse Pulse Resp BP Pulse Ox 06/05/19 11:27 36.4 C L 55 L 19 115/67 97 06/05/19 07:28 36.6 C 61 19 131/71 98 06/05/19 07:24 68 06/05/19 02:52 36.5 C 65 16 157/75 H 97
[2019-06-05] MEDS ORDERED: FUROSEMIDE 40 MG in SYRINGE 0 ML IV STA (15:06)
[2019-06-06] MEDS: METOPROLOL TARTRATE 25 MG TAB PO SCH ×2 (08:19→20:32)
[2019-06-06] MEDS: LEVOTHYROXINE SODIUM 150 MCG TABLET PO SCH (08:19)
[2019-06-06] MEDS: allopurinoL 100 MG TAB PO SCH (08:20)
[2019-06-06] MEDS: ENOXAPARIN INJ 40 MG/0.4 ML SYR SQ SCH (08:20)
[2019-06-06] MEDS: VITAMIN B COMPLEX TAB PO SCH (08:20)
[2019-06-06] MEDS: INSULIN ASPART 100 UNITS/ML 3 ML PEN SC SCH ×4 (08:21→20:31)
[2019-06-06] MEDS: BUDESONIDE/FORMOTEROL FUMARATE 160/4.5 60 PUFFS/INHALER INH SCH ×2 (08:21→20:35)
[2019-06-06] MEDS: INSULIN GLARGINE SOLOSTAR 100 UNITS/ML 3 ML PEN SQ SCH (08:26)
--- NOTE | 2019-06-06 09:29 | Cardiology Progress Note ---
Date of Service June 06, 2019 Assessment & Plan (1) Acute and chronic respiratory failure with hypercapnia: Clinically improved today with 3 L diuresis. Received 40 mg IV Lasix yesterday and 40mg Iv today. I will treat patient with additional 40 mg of Lasix cautiously this evening with repeat basic metabolic panel in a.m. Must avoid intravascular volume depletion/volume contraction due to chronic CO2 retention. Continue to follow fluid balance, daily weight, and GFR. History of recent anemia requiring transfusion. Hemoglobin remains stable. Consider transition to oral diuretic therapy in the next 24 to 48 hours. Repeat chest x-ray. (2) Acute on chronic diastolic heart failure with preserved ejection fraction: Preserved LV systolic function per echocardiogram. No significant valvular pathology. (3) Hypertension: Blood pressure well controlled. Continue furosemide, metoprolol, lisinopril Subjective Patient seen and examined the bedside. Fluid balance negative 3 L overnight. Respiratory status improving. Patient denies chest pain or palpitations. Review of Systems Review of Systems: All systems reviewed & are unremarkable except as noted in HPI & below Physical Exam Constitutional: + morbidly obese Cardiovascular: Rate/Rhythm: regular rate Heart Sounds: normal S1 and normal S2; no murmur Extremities: no edema Gastrointestinal (Abdomen): Inspection/Auscultation: abdomen normal to inspection and normal bowel sounds; abdomen not distended Percussion/Palpation: abdomen soft; abdomen nontender, no guarding and abdomen not rigid Neurologic: PERRL, EOMI, accommodation nl, no face palsy, no dysarthria Results & Data Vital Signs (Past 12 Hours) Vital Signs Temp Pulse Pulse Resp BP Pulse Ox 06/06/19 07:58 65 06/06/19 07:03 36.5 C 59 L 19 132/65 100 06/06/19 03:58 36.6 C 60 18 139/69 99 06/05/19 23:52 36.7 C 60 19 145/68 H 99 06/05/19 22:20 78
[2019-06-06 09:55] LABS: BUN Creatinine Ratio 39.4 (10-20); Calcium 8.9 mg/dl (8.5-10.1); Creatinine Clr Calc Pharmacy 51.3 ml/min; Est GFR (African American) 54.9; Est GFR (Non-African American) 47.3; Potassium 4.2 mmol/L (3.5-5.1)
[2019-06-06 10:20] LABS: Hemoglobin 8.4 g/dL (12.0-16.0); Mean Corpuscular Hemoglobin 27.8 pg (25-34); Mean Platelet Volume 9.5 fL (7.4-10.4); Platelet Count 214 K/uL (130-400); RDW Coefficient of Variation 17.8 % (11.5-14.5); RDW Standard Deviation 62.9 fL (36.4-46.3); Red Blood Count 3.02 M/uL (4.2-5.4); White Blood Count 7.05 K/uL (4.8-10.8)
[2019-06-06] MEDS ORDERED: FUROSEMIDE 40 MG in SYRINGE 0 ML IV ONE ×2 (11:00→20:00)
--- NOTE | 2019-06-06 17:08 | Hospitalist Progress Note ---
Date of Service June 06, 2019 Assessment & Plan (1) Acute and chronic respiratory failure with hypercapnia: Possible secondary with CHF exacerbation due to fluid overload post blood transfusion last week CXR showed cardiomegaly with evidence of congestive failure. Small pleural effusions with bibasilar consolidation. CTA showed no evidence for major central pulmonary embolus. Bibasilar atelectasis/trace pleural effusions. ABG on admission showed PCO2 68 (possible she is CO2 retainer) Influenza negative Received Lasix 40mg IV and solumedrol on admission Was placed on Bipap, then transition on NC now Continue neb treatment, outpatient prednisone and Symbicort Continue oxygen supplement Continue Monitor closely Acute diastolic CHF CXR showed evidence of congestive failure ProBNP on admission 2412 received IV lasix 40mg on admission Echo showed moderate concentric left ventricular hypertrophy. No wall motion abnormality with ejection fraction 65 to 70%. Diastolic dysfunction grade 2 Net output only 2.3L Creatinine improved to 1.1 Cardiology on board recommended to continue IV lasix Monitor BMP while on IV lasix continue monitor in tele Fluid restriction 1.5 L daily Diabetes type 2 Hyperglycemia due to steroid Recent HbA1c 7.9 Continue lantus and novolog sliding scale Continue monitor BS Hypertension BP elevated Continue Lisinopril 2.5 mg daily Continue metoprolol Monitor BP Endometrial cancer Status post surgery Currently undergoing Chemo q21 days Next chemo schedule on Friday after evaluating with oncology Hypothyroidism TSH 0.27 Continue Levothyroxine Will need to repeat TSH in 4 weeks Decubitus ulcer Continue daily wound care wound care on board Chronic anemia Received 1 unit PRBC last week Hgb 8.4 today Continue monitor CBC Generalized weakness fall precaution PT/OT DVT px on Lovenox Code status Full code Disposition Continue monitor in tele Patient's requesting updates from providers. Mr. Tal Britt, contact #[phone]. Subjective Pt was seen and examined Lying in bed with no distress Pt said that she feels slightly better She wants to continue with the Berman cath for now since she is getting IV lasix Denies any chest pain, palpitation, dizziness and fever Physical Exam Physical Exam: General- No acute distress Head- atraumatic Eyes- PERRL, EOMI, ENT- oropharynx clear Neck- supple, no JVD Lungs- diminished BS Heart- regular rhythm; no murmur Abdomen- normal bowel sounds, soft, nontender Extremities- no calf tenderness, +trace edema Neuro- alert, oriented x 3; PERRL, EOMI; no facial palsy; no dysarthria Skin- warm & dry, decubitus ulcer Results & Data Vital Signs (Past 12 Hours) Vital Signs Temp Pulse Pulse Pulse Resp BP BP 06/06/19 16:00 62 06/06/19 15:36 36.6 C 60 22 111/67 06/06/19 11:49 36.6 C 54 L 19 108/56 L 06/06/19 07:58 65 06/06/19 07:03 36.5 C 59 L 19 132/65 Pulse Ox 06/06/19 16:00 06/06/19 15:36 96 06/06/19 11:49 99 06/06/19 07:58 06/06/19 07:03 100
[2019-06-07 07:37] LABS: Hematocrit (blood only) 29.6 % (37-47); Hemoglobin 8.6 g/dL (12.0-16.0); Mean Corpuscular Hemoglobin 27.7 pg (25-34); Mean Corpuscular Hgb Conc 29.1 g/dL (32-36); Mean Corpuscular Volume 95.2 fL (80-100); Mean Platelet Volume 9.3 fL (7.4-10.4); Platelet Count 212 K/uL (130-400); RDW Coefficient of Variation 17.9 % (11.5-14.5); RDW Standard Deviation 62.3 fL (36.4-46.3); Red Blood Count 3.11 M/uL (4.2-5.4); White Blood Count 7.94 K/uL (4.8-10.8)
[2019-06-07] MEDS: INSULIN GLARGINE SOLOSTAR 100 UNITS/ML 3 ML PEN SQ SCH (08:00)
[2019-06-07 08:14] LABS: BUN Creatinine Ratio 36.4 (10-20); Est GFR (African American) 58.7; Est GFR (Non-African American) 50.6; Potassium 3.8 mmol/L (3.5-5.1)
[2019-06-07] MEDS ORDERED: FUROSEMIDE 40 MG in SYRINGE 0 ML IV STA (08:28)
[2019-06-07] MEDS: INSULIN ASPART 100 UNITS/ML 3 ML PEN SC SCH ×4 (09:20→20:57)
[2019-06-07] MEDS: VITAMIN B COMPLEX TAB PO SCH (09:22)
[2019-06-07] MEDS: LEVOTHYROXINE SODIUM 150 MCG TABLET PO SCH (09:22)
[2019-06-07] MEDS: allopurinoL 100 MG TAB PO SCH (09:23)
[2019-06-07] MEDS: ENOXAPARIN INJ 40 MG/0.4 ML SYR SQ SCH (09:23)
[2019-06-07] MEDS: METOPROLOL TARTRATE 25 MG TAB PO SCH ×2 (09:23→19:38)
[2019-06-07] MEDS: BUDESONIDE/FORMOTEROL FUMARATE 160/4.5 60 PUFFS/INHALER INH SCH ×2 (09:24→19:38)
--- NOTE | 2019-06-07 10:47 | XCELERA ---
[id number] \\[email or web address]_[id number]
--- NOTE | 2019-06-07 14:52 | XRay Report ---
XR chest 1V portable HISTORY: Congestive heart failure. Shortness of breath. COMPARISON: Chest 06/04/2019. FINDINGS: No pneumothorax. Small bilateral pleural effusions and bibasilar densities persist. The hea rt remains enlarged. There is mild central pulmonary vascular congestion without overt edema. This is similar to the prior study. Right Port-A-Cath terminates in the right atrium. This remains unchanged . IMPRESSION: 1. No change in the pulmonary vascular congestion and bibasilar densities/effusions. 2. Stable and likely. 3. Right Port-A-Cath terminates at the right atrium. This remains unchanged. Electronically signed by: Steven Zimmerman M.D. 06/07/2019 2:51 PM
[2019-06-07] MEDS: FUROSEMIDE 40 MG in SYRINGE 0 ML IV SCH (16:58)
--- NOTE | 2019-06-07 19:38 | Hospitalist Progress Note ---
Date of Service June 07, 2019 Assessment & Plan (1) Acute and chronic respiratory failure with hypercapnia: Possible secondary with CHF exacerbation due to fluid overload post blood transfusion last week CXR showed cardiomegaly with evidence of congestive failure. Small pleural effusions with bibasilar consolidation. CTA showed no evidence for major central pulmonary embolus. Bibasilar atelectasis/trace pleural effusions. ABG on admission showed PCO2 68 (possible she is CO2 retainer) Influenza negative Received Lasix 40mg IV and solumedrol on admission Was placed on Bipap, then transition on NC now Continue neb treatment, outpatient prednisone and Symbicort Continue oxygen supplement Continue Monitor closely Acute diastolic CHF CXR showed evidence of congestive failure ProBNP on admission 2412 received IV lasix 40mg on admission Echo showed moderate concentric left ventricular hypertrophy. No wall motion abnormality with ejection fraction 65 to 70%. Diastolic dysfunction grade 2 Net output about 6L Creatinine stable Cardiology on board recommended to continue IV lasix Monitor BMP while on IV lasix continue monitor in tele Fluid restriction 1.5 L daily Diabetes type 2 Hyperglycemia due to steroid Recent HbA1c 7.9 Continue lantus and novolog sliding scale Continue monitor BS Hypertension BP elevated Continue Lisinopril 2.5 mg daily Continue metoprolol Monitor BP Endometrial cancer Status post surgery Currently undergoing Chemo q21 days Next chemo schedule on Friday after evaluating with oncology Hypothyroidism TSH 0.27 Continue Levothyroxine Will need to repeat TSH in 4 weeks Decubitus ulcer Continue daily wound care wound care on board Chronic anemia Received 1 unit PRBC last week Hgb 8.6 today Continue monitor CBC CKD 3 Creatinine stable Will monitor BMP while on IV lasix Generalized weakness fall precaution PT/OT Refuse to participate in therapy DVT px on Lovenox Code status Full code Disposition Continue monitor in tele Patient's requesting updates from providers. Mr. Tal Britt, contact #[phone]. Subjective Pt was seen and examined Lying in bed with no distress Pt said that she feels ok Nurse said that pt does not want to participate in therapy Denies any chest pain, palpitation and dizziness Physical Exam Physical Exam: General- No acute distress Head- atraumatic Eyes- PERRL, EOMI, ENT- oropharynx clear Neck- supple, no JVD Lungs- diminished BS Heart- regular rhythm; no murmur Abdomen- normal bowel sounds, soft, nontender Extremities- no calf tenderness, +trace edema Neuro- alert, oriented x 3; PERRL, EOMI; no facial palsy; no dysarthria Skin- warm & dry, decubitus ulcer Results & Data Vital Signs (Past 12 Hours) Vital Signs Temp Pulse Pulse Resp BP BP Pulse Ox 06/07/19 16:03 36.8 C 84 18 112/70 96 06/07/19 11:54 36.6 C 65 18 122/79 96 06/07/19 09:00 65 06/07/19 07:56 36.7 C 67 18 149/77 H 95
[2019-06-07 20:54] LABS: Appearance Urine Clear (Clear); Bacteria Urine Automated 1+ (Negative); Bilirubin Urine Negative (Negative); Blood Urine 1+ (Negative); Color Urine Yellow; Glucose Urine UA Negative (Negative); Ketones Urine Negative (Negative); Leukocyte Esterase Urine 2+ (Negative); Nitrite Urine Positive (Negative); Protein Urine Negative (Negative); RBC Urine Automated 0-4 /hpf (0-4); Specific Gravity Urine 1.016 (1.000-1.030); Urobilinogen Urine Negative (Negative); WBC Urine Automated >30 /hpf (0-5)
[2019-06-07] MEDS ORDERED: CEFEPIME 2,000 MG/20 ML VIAL IV STA (23:19)
[2019-06-07] MEDS ORDERED: CEFEPIME CONSULT ACTIVE PRN (23:38)
[2019-06-08] MEDS: LEVOTHYROXINE SODIUM 150 MCG TABLET PO SCH (06:05)
[2019-06-08 06:24] LABS: Hematocrit (blood only) 30.2 % (37-47); Hemoglobin 8.9 g/dL (12.0-16.0); Mean Corpuscular Hemoglobin 27.6 pg (25-34); Mean Corpuscular Hgb Conc 29.5 g/dL (32-36); Mean Corpuscular Volume 93.8 fL (80-100); Mean Platelet Volume 9.2 fL (7.4-10.4); Platelet Count 197 K/uL (130-400); RDW Coefficient of Variation 17.8 % (11.5-14.5); Red Blood Count 3.22 M/uL (4.2-5.4); White Blood Count 8.39 K/uL (4.8-10.8)
[2019-06-08 07:02] LABS: Calcium 8.9 mg/dl (8.5-10.1); Creatinine Clr Calc Pharmacy 63.6 ml/min; Est GFR (African American) 71.5; Est GFR (Non-African American) 61.7; Potassium 3.4 mmol/L (3.5-5.1)
[2019-06-08] MEDS: allopurinoL 100 MG TAB PO SCH (07:58)
[2019-06-08] MEDS: METOPROLOL TARTRATE 25 MG TAB PO SCH ×2 (07:58→21:16)
[2019-06-08] MEDS: BUDESONIDE/FORMOTEROL FUMARATE 160/4.5 60 PUFFS/INHALER INH SCH ×2 (07:59→21:17)
[2019-06-08] MEDS: FUROSEMIDE 40 MG in SYRINGE 0 ML IV SCH ×2 (07:59→16:56)
[2019-06-08] MEDS: VITAMIN B COMPLEX TAB PO SCH (07:59)
[2019-06-08] MEDS: ENOXAPARIN INJ 40 MG/0.4 ML SYR SQ SCH (07:59)
[2019-06-08] MEDS: INSULIN GLARGINE SOLOSTAR 100 UNITS/ML 3 ML PEN SQ SCH (07:59)
[2019-06-08] MEDS: INSULIN ASPART 100 UNITS/ML 3 ML PEN SC SCH ×4 (08:01→21:16)
[2019-06-08] MEDS ORDERED: POTASSIUM CHLORIDE 20 MEQ TABCR PO STA (08:18)
--- NOTE | 2019-06-08 11:50 | Cardiology Progress Note ---
Date of Service June 08, 2019 Assessment & Plan (1) Acute and chronic respiratory failure with hypercapnia: Continue Lasix 40 mg IV twice daily. Monitor fluid balance, daily weight, electrolytes, and GFR. History of recent anemia requiring transfusion. Hemoglobin remains stable. (2) Acute on chronic diastolic heart failure with preserved ejection fraction: Preserved LV systolic function per echocardiogram. No significant valvular pathology. (3) Hypertension: Blood pressure well controlled. Continue furosemide, metoprolol, lisinopril (4) Decubital ulcer: Antibiotics per wound care/internal medicine. Subjective Patient seen and examined at the bedside. Fluid balance -2.4 L over the past 24 hours. Respiratory status slowly improving. Denies chest pain or unusual shortness of breath. No recurrent atrial tachycardia on telemetry overnight. Patient offers no other concerns/complaints currently. Review of Systems Review of Systems: All systems reviewed & are unremarkable except as noted in HPI & below Physical Exam Constitutional: + morbidly obese Cardiovascular: Rate/Rhythm: regular rate Heart Sounds: normal S1 and normal S2; no murmur Extremities: + edema (1+ bilateral pedal and pretibial) Gastrointestinal (Abdomen): Inspection/Auscultation: abdomen normal to inspection and normal bowel sounds; abdomen not distended Percu ssion/Palpation: abdomen soft; abdomen nontender, no guarding and abdomen not rigid Neurologic: PERRL, EOMI, accommodation nl, no face palsy, no dysarthria Results & Data Vital Signs (Past 12 Hours) Vital Signs Temp Pulse Pulse Resp BP Pulse Ox 06/08/19 07:40 62 06/08/19 07:03 36.7 C 72 22 150/81 H 92 06/08/19 04:25 36.7 C 63 18 144/74 H 95
[2019-06-08 13:28] LABS: Cdiff Antigen Positive; Cdiff Toxin A+B Negative Cdiff Toxin (Negative)
--- NOTE | 2019-06-08 19:12 | Hospitalist Progress Note ---
Date of Service June 08, 2019 Assessment & Plan (1) Acute and chronic respiratory failure with hypercapnia: Possible secondary with CHF exacerbation due to fluid overload post blood transfusion last week CXR showed cardiomegaly with evidence of congestive failure. Small pleural effusions with bibasilar consolidation. CTA showed no evidence for major central pulmonary embolus. Bibasilar atelectasis/trace pleural effusions. ABG on admission showed PCO2 68 (possible she is CO2 retainer) Influenza negative Received Lasix 40mg IV and solumedrol on admission Was placed on Bipap, then transition on NC now Continue neb treatment, outpatient prednisone and Symbicort Continue oxygen supplement Continue Monitor closely Acute diastolic CHF CXR showed evidence of congestive failure ProBNP on admission 2412 received IV lasix 40mg on admission Echo showed moderate concentric left ventricular hypertrophy. No wall motion abnormality with ejection fraction 65 to 70%. Diastolic dysfunction grade 2 Net output about 7L Creatinine stable Cardiology on board recommended to continue IV lasix 40mg BID Monitor BMP while on IV lasix continue monitor in tele Fluid restriction 1.5 L daily Diabetes type 2 Hyperglycemia due to steroid Recent HbA1c 7.9 Continue lantus and novolog sliding scale Continue monitor BS Hypertension BP elevated Continue Lisinopril 2.5 mg daily Continue metoprolol Monitor BP Endometrial cancer Status post surgery Currently undergoing Chemo q21 days Next chemo schedule on Friday after evaluating with oncology Hypothyroidism TSH 0.27 Continue Levothyroxine Will need to repeat TSH in 4 weeks Decubitus ulcer Continue daily wound care wound care on board Wound cx sent Chronic anemia Received 1 unit PRBC last week outpatient Hgb 8.9 today Continue monitor CBC Abnormal UA Call received from outpatient provider that urine cx grew MRSA with >[id number] colonies Seems to be contaminated was starting on Cefepime IV on 04/07 Urine cx repeat pending Diarrhea Possible related to abx Stool for Cdiff negative for Cdiff toxin Monitor electrolytes CKD 3 Creatinine stable Will monitor BMP while on IV lasix Generalized weakness fall precaution PT/OT Refuse to participate in therapy DVT px on Lovenox Code status Full code Disposition Continue monitor in tele Patient's requesting updates from providers. Mr. Tal Britt, contact #[phone]. Subjective Pt was seen and examined Lying in bed with no distress Pt said that her breathing feels much better Denies any chest pain, palpitation and SOB Physical Exam Physical Exam: General- No acute distress Head- atraumatic Eyes- PERRL, EOMI, ENT- oropharynx clear Neck- supple, no JVD Lungs- diminished BS Heart- regular rhythm; no murmur Abdomen- normal bowel sounds, soft, nontender Extremities- no calf tenderness, +trace edema Neuro- alert, oriented x 3; PERRL, EOMI; no facial palsy; no dysarthria Skin- warm & dry, decubitus ulcer Results & Data Vital Signs (Past 12 Hours) Vital Signs Temp Pulse Pulse Resp BP Pulse Ox 06/08/19 17:51 65 06/08/19 15:12 37.6 C H 63 18 103/66 98 06/08/19 07:40 62
[2019-06-09] MEDS ORDERED: CEFEPIME 2,000 MG in SYRINGE 7.5 ML IV SCH
[2019-06-09] MEDS: LEVOTHYROXINE SODIUM 150 MCG TABLET PO SCH (05:41)
[2019-06-09 06:44] LABS: Hematocrit (blood only) 29.3 % (37-47); Hemoglobin 8.7 g/dL (12.0-16.0); Mean Corpuscular Hgb Conc 29.7 g/dL (32-36); Mean Corpuscular Volume 94.2 fL (80-100); Mean Platelet Volume 9.2 fL (7.4-10.4); Platelet Count 188 K/uL (130-400); RDW Coefficient of Variation 18.3 % (11.5-14.5); RDW Standard Deviation 62.7 fL (36.4-46.3); Red Blood Count 3.11 M/uL (4.2-5.4)
[2019-06-09 07:23] LABS: BUN Creatinine Ratio 27.6 (10-20); Calcium 8.4 mg/dl (8.5-10.1); Creatinine Clr Calc Pharmacy 60.9 ml/min; Est GFR (African American) 59.3; Est GFR (Non-African American) 51.2; Potassium 3.5 mmol/L (3.5-5.1)
[2019-06-09] MEDS: INSULIN ASPART 100 UNITS/ML 3 ML PEN SC SCH ×4 (08:16→22:01)
[2019-06-09] MEDS: INSULIN GLARGINE SOLOSTAR 100 UNITS/ML 3 ML PEN SQ SCH (08:16)
[2019-06-09] MEDS: ENOXAPARIN INJ 40 MG/0.4 ML SYR SQ SCH (08:18)
[2019-06-09] MEDS: BUDESONIDE/FORMOTEROL FUMARATE 160/4.5 60 PUFFS/INHALER INH SCH ×2 (08:18→21:59)
[2019-06-09] MEDS: VITAMIN B COMPLEX TAB PO SCH (08:19)
[2019-06-09] MEDS: METOPROLOL TARTRATE 25 MG TAB PO SCH ×2 (08:19→21:59)
[2019-06-09] MEDS: allopurinoL 100 MG TAB PO SCH (08:19)
[2019-06-09] MEDS: FUROSEMIDE 40 MG in SYRINGE 0 ML IV SCH (08:19)
--- NOTE | 2019-06-09 08:43 | Hospitalist Progress Note ---
Date of Service June 09, 2019 Assessment & Plan (1) Acute and chronic respiratory failure with hypercapnia: Possible secondary with CHF exacerbation due to fluid overload post blood transfusion last week CXR showed cardiomegaly with evidence of congestive failure. Small pleural effusions with bibasilar consolidation. CTA showed no evidence for major central pulmonary embolus. Bibasilar atelectasis/trace pleural effusions. ABG on admission showed PCO2 68 (possible CO2 retainer) Influenza negative Received Lasix 40mg IV and solumedrol on admission Was placed on Bipap, then transition on NC now Continue neb treatment, outpatient prednisone and Symbicort Continue oxygen supplement Continue Monitor closely Acute diastolic CHF CXR showed evidence of congestive failure ProBNP on admission 2412 received IV lasix 40mg on admission Echo showed moderate concentric left ventricular hypertrophy. No wall motion abnormality with ejection fraction 65 to 70%. Diastolic dysfunction grade 2 Net output about 7L Creatinine stable Cardiology on board recommended to continue IV lasix 40mg BID Monitor BMP while on IV lasix continue monitor in tele Fluid restriction 1.5 L daily Diabetes type 2 Hyperglycemia due to steroid Recent HbA1c 7.9 Continue lantus and novolog sliding scale Continue monitor BS Hypertension BP elevated Continue Lisinopril 2.5 mg daily Continue metoprolol Monitor BP Endometrial cancer Status post surgery Currently undergoing Chemo q21 days Next chemo schedule on Friday after evaluating with oncology Hypothyroidism TSH 0.27 Continue Levothyroxine Will need to repeat TSH in 4 weeks Decubitus ulcer Continue daily wound care wound care on board Wound cx sent Chronic anemia Received 1 unit PRBC last week outpatient Continue monitor CBC Abnormal UA Call received from outpatient provider that urine cx grew MRSA with >[id number] colonies Seems to be contaminated was starting on Cefepime IV on 04/07 Urine cx repeat pending Diarrhea Possible related to abx Stool for Cdiff Toxin B Positive-PO Vanco started Monitor electrolytes CKD 3 Creatinine stable Will monitor BMP while on IV lasix Generalized weakness fall precaution PT/OT Refuse to participate in therapy DVT px on Lovenox Code status Full code Disposition Continue monitor in tele Patient's requesting updates from providers. Mr. Tal Britt, contact #[phone]. Labs checked ROS-No Headache, No Visual Changes, No Nausea, No Vomiting, No Fever, No Chills, No Neck Pain or Stiffness, No Chest Pain, No Palpitations, No SOB, No DODSON, No Cough, No Sputum, No Wheezing, No Abdominal Pain, No Diarrhea, No Hematemesis, No Hemoptysis, No Unexpected Weight Loss, No Flank pain, No Melena, No Hematochezia, No Frequency, No Urgency, No Burning, No Hematuria, No Rashes, No Diaphoresis. Appetite is Normal Physical Exam Gen-AAO x 3, NAD, Afebrile, Obese Head-NCAT, EOMI, PERRLA, Anicteric Sclera, No Posterior Pharyngeal Erythema Neck-Supple, No JVD, No Thyromegaly, No Masses, No LAD, No Bruits Lungs-Clear to Auscultation Bilaterally, No Rales, No Rhonchi, No Wheezing, No Crepitus Chest-No S4, +S1, +S2, No S3, No Murmurs, No Rubs, No Gallops, No Ectopy Abdomen-Soft, Bowel Sounds Present, Non Tender, Non Distended, No Hepatomegaly, No Splenomegaly, No Palpable Masses, No Rebound, No Rigidity, No Guarding Musculoskeletal-Full Range of Motion Bilaterally, No CVAT Extremities-No Cyanosis, No Clubbing, No Edema Nuero-Cranial Nerves II-XII grossly intact, Motor WNL, DTRs WNL, Strength WNL, Non Focal Psych-Normal Mood Results & Data Vital Signs (Past 12 Hours) Vital Signs Temp Pulse Pulse Resp BP Pulse Ox 06/09/19 07:18 36.7 C 67 18 110/69 96 06/09/19 06:40 67 06/09/19 03:01 36.7 C 66 18 112/68 96 06/09/19 00:37 65 06/08/19 23:36 36.8 C 63 18 121/73 97
[2019-06-09 09:25] LABS: Base Excess ABG 16.8 mEq/L (-9-1.8); HCO3 ABG 43 mmol/L (19-24); PCO2 ABG 59 mmHg (35-46); PO2 ABG 88 mm/Hg (80-95); pH ABG 7.47 (7.35-7.45)
[2019-06-09 09:31] LABS: Allen Test Pos (Pos)
[2019-06-09] MEDS ORDERED: RASPBERRY SYRUP 5 ML UDP PO SCH (12:00)
[2019-06-09] MEDS ORDERED: VANCOMYCIN HCL 250 MG/5 ML SOLN PO SCH (12:00)
--- NOTE | 2019-06-09 13:59 | Cardiology Progress Note ---
Date of Service June 09, 2019 Assessment & Plan (1) Acute and chronic respiratory failure with hypercapnia: Serum bicarbonate continues to trend upward. Recommend discontinuation of IV Lasix. Will resume oral Bumex, however, increase dose to 1 mg daily. Outpatient dose of Bumex 0.5 mg daily. Monitor fluid balance, daily weight, electrolytes, and GFR. History of recent anemia requiring transfusion. Hemoglobin remains stable. (2) Acute on chronic diastolic heart failure with preserved ejection fraction: Preserved LV systolic function per echocardiogram. No significant valvular pathology. (3) Hypertension: Blood pressure well controlled. Continue furosemide, metoprolol, lisinopril (4) Decubital ulcer: Antibiotics per wound care/internal medicine. Subjective Patient seen and examined at the bedside. Fluid balance negative approximately 900 cc over the past 24 hours. Serum bicarbonate trending upward on repeat lab testing. Respiratory status improved. Patient denies chest pain or shortness of breath. No recurrent atrial tachycardia on telemetry. Notes fatigue. No fever or chills. Offers no other concerns/complaints at this time. Review of Systems Review of Systems: All systems reviewed & are unremarkable except as noted in HPI & below Physical Exam Constitutional: + morbidly obese Cardiovascular: Rate/Rhythm: regular rate Heart Sounds: normal S1 and normal S2; no murmur Extremities: + edema (1+ bilateral pedal and pretibial) Gastrointestinal (Abdomen): Inspection/Auscultation: abdomen normal to inspection and normal bowel sounds; abdomen not distended Percussion/Palpation: abdomen soft; abdomen nontender, no guarding and abdomen not rigid Neurologic: PERRL, EOMI, accommodation nl, no face palsy, no dysarthria Results & Data Vital Signs (Past 12 Hours) Vital Signs Temp Pulse Pulse Resp BP Pulse Ox 06/09/19 11:06 36.7 C 64 18 108/57 L 97 06/09/19 07:18 36.7 C 67 18 110/69 96 06/09/19 06:40 67 06/09/19 03:01 36.7 C 66 18 112/68 96
[2019-06-09] MEDS ORDERED: CEFAZOLIN 2000MG 2,000 MG/15 ML SYR IV SCH (15:30)
[2019-06-09] MEDS: DOXYCYCLINE HYCLATE 100 MG in DEXTROSE 5% 100 ML IV SCH (17:30)
[2019-06-09] MEDS: HEPARIN 100 UNIT/ML 5ML FLUSH FLUSH PRN (19:41)
[2019-06-10] MEDS: DOXYCYCLINE HYCLATE 100 MG in DEXTROSE 5% 100 ML IV SCH ×2 (05:40→17:11)
[2019-06-10] MEDS: LEVOTHYROXINE SODIUM 150 MCG TABLET PO SCH (05:43)
[2019-06-10] MEDS: BUDESONIDE/FORMOTEROL FUMARATE 160/4.5 60 PUFFS/INHALER INH SCH ×2 (07:44→20:45)
[2019-06-10] MEDS: VITAMIN B COMPLEX TAB PO SCH (07:44)
[2019-06-10] MEDS: INSULIN GLARGINE SOLOSTAR 100 UNITS/ML 3 ML PEN SQ SCH (07:44)
[2019-06-10] MEDS: METOPROLOL TARTRATE 25 MG TAB PO SCH ×2 (07:45→20:45)
[2019-06-10] MEDS: allopurinoL 100 MG TAB PO SCH (07:45)
[2019-06-10] MEDS: ENOXAPARIN INJ 40 MG/0.4 ML SYR SQ SCH (07:46)
[2019-06-10] MEDS: INSULIN ASPART 100 UNITS/ML 3 ML PEN SC SCH ×4 (07:49→20:45)
[2019-06-10 08:18] LABS: Basophils # (auto) 0.05 K/uL (0-0.2); Basophils % (auto) 0.7 %; Eosinophils # (auto) 0.02 K/uL (0-0.5); Eosinophils % (auto) 0.3 %; Hematocrit (blood only) 28.9 % (37-47); Hemoglobin 8.5 g/dL (12.0-16.0); Immature Granulocytes # (auto) 0.08 K/uL (0.00-0.02); Lymphocytes # (auto) 1.68 K/uL (1.2-3.4); Mean Corpuscular Hemoglobin 27.9 pg (25-34); Mean Corpuscular Hgb Conc 29.4 g/dL (32-36); Mean Corpuscular Volume 94.8 fL (80-100); Mean Platelet Volume 9.4 fL (7.4-10.4); Monocytes # (auto) 0.62 K/uL (0.11-0.59); Monocytes % (auto) 8.1 %; Neutrophils # (auto) 5.18 K/uL (1.4-6.5); Neutrophils % (auto) 67.9 %; Platelet Count 190 K/uL (130-400); RDW Coefficient of Variation 18.3 % (11.5-14.5); RDW Standard Deviation 63.1 fL (36.4-46.3); Red Blood Count 3.05 M/uL (4.2-5.4); White Blood Count 7.63 K/uL (4.8-10.8)
[2019-06-10 08:53] LABS: Albumin Globulin Ratio 0.7 (0.9-2); Albumin Level 2.5 gm/dl (3.4-5.0); Bilirubin,Total 0.6 mg/dl (0.2-1); Calcium 8.8 mg/dl (8.5-10.1); Est GFR (African American) 56.7; Est GFR (Non-African American) 48.9; Globulin 3.8 gm/dl (2.5-4.0); Potassium 3.5 mmol/L (3.5-5.1); Total Protein 6.3 gm/dl (6.4-8.2)
[2019-06-10] MEDS: BUMETANIDE 1 MG TAB PO SCH (09:48)
--- NOTE | 2019-06-10 10:12 | Infectious Disease Consult ---
Date of Consultation June 10, 2019 Assessment & Plan (1) Sacral wound: agree with doxy, this will treat + urine culture as well. can change to po doxy 100mg po bid with food upon d/c and continue x 4 weeks. will need ongoing wound care post d/c. no contraindication to d/c from ID standpoint. History of Present Illness Attending Physician: Javier Lemus, pt admitted with increased sob. she was recently diagnosed with endometrial cancer and has had several hospital stays due to this. she has had intermittent chemo and tolerated well. she was admitted with suspected chf. She has sacral wound which she states is healing, purulent drainage noted, cultured on 06/08 growing MRSA, she also had urine specimen from cath growing MRSA as well. no f/c. overall feeling better. breathing better, no cough, sob, cp, no abd pain, currently denies abd pain, n/v/d, eating well. c diff testing negative. on IV doxy and tolerating well. wbc 7Blood cultures negative. states she is to be d/c tomorrow. overall feeling better but still min weakness. Allergies Allergy/AdvReac Type Severity Reaction Status Date / Time No Known Allergies Allergy Unverified 06/03/19 22:22 Home Medications Home Medications Medication Instructions Recorded Confirmed Type Vitamin B Complex Liquid 1 dose PO DAILY 06/03/19 06/03/19 History albuterol sulfate 2.5 mg/kg CONTINUOUS NEBULIZATION 06/03/19 06/03/19 History Q4 PRN allopurinol 100 mg PO DAILY 06/03/19 06/03/19 History budesonide-formoterol [Symbicort] 2 puff INHALATION BID 06/03/19 06/03/19 History bumetanide 0.5 mg PO DAILY 06/03/19 06/03/19 History cholecalciferol (vitamin D3) 0 unit PO DAILY 06/03/19 06/03/19 History [Vitamin D3] ciprofloxacin HCl 500 mg PO BID 06/03/19 06/03/19 History dexamethasone [Decadron] 8 mg PO UD 06/03/19 06/03/19 History ipratropium-albuterol 3 ml INHALATION QID PRN 06/03/19 06/03/19 History levothyroxine 150 mcg PO CQWK 06/03/19 06/03/19 History lisinopril 10 mg PO DAILY 06/03/19 06/03/19 History ondansetron HCl [Zofran] 8 mg PO Q8 06/03/19 06/03/19 History potassium chloride 10 meq PO DAILY 06/03/19 06/03/19 History prednisone 0 mg PO .TAPER UD 06/03/19 06/03/19 History prochlorperazine maleate 10 mg PO .Q4-6 PRN 06/03/19 06/03/19 History sod phos di, mono-K phos mono 1 tab PO BID 06/03/19 06/03/19 History [Phospha 250 Neutral] terconazole 1 appful VAGINAL UD 06/03/19 06/03/19 History Patient History Medical History Encounter for insertion of venous access port Uterine cancer (Acute) Surgical History No pertinent past surgical history Family History Other No pertinent family history in first degree relatives Social History Preferred Language: [place] Communication Ability: Effective Beliefs That Will Affect Care: None Current Living Situation: Alone Feels Safe at Home: Yes Safety Concerns: Feels Safe At This Time Smoking Status: Never smoker Hx Alcohol Use: No Hx Substance Use: No Review of Systems Review of Systems: All systems reviewed & are unremarkable except as noted in HPI & below Physical Exam Constitutional: WD/WN, vitals as above Eyes: PERRL, conjunctivae normal, anicteric sclerae ENMT: external ear and nose normal, oropharynx normal Neck: normal visual inspection Respiratory: normal respiratory effort, lungs clear to auscultation Cardiovascular: RRR, no murmur, no edema Gastrointestinal (Abdomen): normal bowel sounds, soft, nontender, no hepatosplenomegaly Musculoskeletal: no cyanosis or clubbing, extremities motor strength 5/5 Skin: no rashes, warm and dry Psychiatric: A+Ox3, euthymic affect Results & Data Vital Signs (Past 12 Hours) Vital Signs Temp Pulse Pulse Pulse Resp BP Pulse Ox 06/10/19 09:51 65 95 12/12/19 07:42 36.5 C 67 20 108/70 98 06/10/19 03:52 37.0 C 67 16 108/66 97 06/10/19 01:31 64 06/09/19 23:44 36.8 C 60 19 102/58 L 100 Laboratory Results Microbiology 06/07/19 23:01 Urine,Indwelling Cath Urine Culture - Final Staph aureus MRSA 06/08/19 09:45 Thigh,Right Gram Stain - Final 06/08/19 09:45 Thigh,Right Deep Wound Culture - Preliminary Staph aureus MRSA 06/08/19 09:45 Buttock Gram Stain - Final 06/08/19 09:45 Buttock Deep Wound Culture - Preliminary Staph aureus MRSA 06/03/19 21:57 Blood Aerobic Blood Culture - Final No growth in Aerobic bottle after 5 days. 06/03/19 21:57 Blood Anaerobic Blood Culture - Final No growth in Anaerobic bottle after 5 days. 06/03/19 22:27 Blood Aerobic Blood Culture - Final No growth in Aerobic bottle after 5 days. 06/03/19 22:27 Blood Anaerobic Blood Culture - Final No growth in Anaerobic bottle after 5 days. PG Care Time/CCT Total # of Minutes Spent Total Time Spent with Patient: Total time spent is greater than 50% in coordination of care (as documented) at patient's floor/unit and/or counseling patient:
--- NOTE | 2019-06-10 10:40 | Hospitalist Progress Note ---
Date of Service June 10, 2019 Assessment & Plan (1) Acute and chronic respiratory failure with hypercapnia: Secondary with CHF exacerbation due to fluid overload post blood transfusion last week CXR showed cardiomegaly with evidence of congestive failure. Small pleural effusions with bibasilar consolidation. CTA showed no evidence for major central pulmonary embolus. Bibasilar atelectasis/trace pleural effusions. ABG on admission showed PCO2 68 (CO2 retainer) Influenza negative Received Lasix 40mg IV and Solumedrol on admission Was placed on Bipap, on NC now Continue neb treatment, outpatient prednisone and Symbicort Continue oxygen supplement-On O2 at bedtime Continue Monitor closely Acute diastolic CHF CXR showed evidence of congestive failure ProBNP on admission 2412 received IV lasix 40mg on admission Echo showed moderate concentric left ventricular hypertrophy. No wall motion abnormality with ejection fraction 65 to 70%. Diastolic dysfunction grade 2 Net output about 7L Creatinine stable Cardiology on board recommended to continue IV lasix 40mg BID Monitor BMP while on IV lasix continue monitor in tele Fluid restriction 1.5 L daily Diabetes type 2 Hyperglycemia due to steroid Recent HbA1c 7.9 Continue lantus and novolog sliding scale Continue monitor BS Hypertension BP elevated Continue Lisinopril 2.5 mg daily Continue metoprolol Monitor BP Endometrial cancer Status post surgery Currently undergoing Chemo q21 days Next chemo schedule on Friday after evaluating with oncology Hypothyroidism TSH 0.27 Continue Levothyroxine Will need to repeat TSH in 4 weeks Decubitus ulcer Continue daily wound care wound care on board Wound cx sent Chronic anemia Received 1 unit PRBC last week outpatient Continue monitor CBC Abnormal UA Call received from outpatient provider that urine cx grew MRSA with >[id number] colonies Seems to be contaminated was starting on Cefepime IV on 04/07 Urine cx repeat pending Diarrhea Possible related to abx Stool for Cdiff Toxin B Positive-But PCR negative, D/W ID and will not treat for CDT Monitor electrolytes CKD 3 Creatinine stable Will monitor BMP while on IV lasix Generalized weakness fall precaution PT/OT Refuse to participate in therapy DVT px on Lovenox Code status Full code Disposition Continue monitor in tele [facility] with [facility] tomorrow Patient's requesting updates from providers. Mr. Tal Britt, contact #[phone]. Updated 06/10 on plan Labs checked ROS-No Headache, No Visual Changes, No Nausea, No Vomiting, No Fever, No Chills, No Neck Pain or Stiffness, No Chest Pain, No Palpitations, No SOB, No DODSON, No Cough, No Sputum, No Wheezing, No Abdominal Pain, No Diarrhea, No Hematemesis, No Hemoptysis, No Unexpected Weight Loss, No Flank pain, No Melena, No Hematochezia, No Frequency, No Urgency, No Burning, No Hematuria, No Rashes, No Diaphoresis. Appetite is Normal Physical Exam Gen-AAO x 3, NAD, Afebrile, Obese Head-NCAT, EOMI, PERRLA, Anicteric Sclera, No Posterior Pharyngeal Erythema Neck-Supple, No JVD, No Thyromegaly, No Masses, No LAD, No Bruits Lungs-Clear to Auscultation Bilaterally, No Rales, No Rhonchi, No Wheezing, No Crepitus Chest-No S4, +S1, +S2, No S3, No Murmurs, No Rubs, No Gallops, No Ectopy Abdomen-Soft, Bowel Sounds Present, Non Tender, Non Distended, No Hepatomegaly, No Splenomegaly, No Palpable Masses, No Rebound, No Rigidity, No Guarding Musculoskeletal-Full Range of Motion Bilaterally, No CVAT Extremities-No Cyanosis, No Clubbing, No Edema Nuero-Cranial Nerves II-XII grossly intact, Motor WNL, DTRs WNL, Strength WNL, Non Focal Psych-Normal Mood Results & Data Vital Signs (Past 12 Hours) Vital Signs Temp Pulse Pulse Pulse Resp BP Pulse Ox 06/10/19 09:51 65 95 06/10/19 07:42 36.5 C 67 20 108/70 98 06/10/19 03:52 37.0 C 67 16 108/66 97 06/10/19 01:31 64 06/09/19 23:44 36.8 C 60 19 102/58 L 100
--- NOTE | 2019-06-10 10:54 | Cardiology Progress Note ---
Date of Service June 10, 2019 Assessment & Plan (1) Acute and chronic respiratory failure with hypercapnia: Continue Bumex 1 mg daily. Outpatient dose of Bumex 0.5 mg daily. Monitor fluid balance, daily weight, electrolytes, and GFR. History of recent anemia requiring transfusion. Hemoglobin remains stable. No further inpatient cardiovascular testing or intervention at this time. Continue current medications. Outpatient cardiology follow-up in 2 to 4 weeks. Cardiology will sign off at this time. Please call with questions. (2) Acute on chronic diastolic heart failure with preserved ejection fraction: Preserved LV systolic function per echocardiogram. No significant valvular pathology. (3) Hypertension: Blood pressure well controlled. Continue bumex, metoprolol, lisinopril (4) Decubital ulcer: Antibiotics per wound care/internal medicine. Subjective Patient seen examined at bedside. Fluid balance essentially even over the past 24 hours. Transition from IV Lasix to oral Bumex. Renal function stable. Dyspnea improved. Patient offers no complaints this time. Review of Systems Review of Systems: All systems reviewed & are unremarkable except as noted in HPI & below Physical Exam Constitutional: + morbidly obese Cardiovascular: Rate/Rhythm: regular rate Heart Sounds: normal S1 and normal S2; no murmur Extremities: + edema (1+ bilateral pedal and pretibial) Gastrointestinal (Abdomen): Inspection/Auscultation: abdomen normal to inspection and normal bowel sounds; abdomen not distended Percussion/Palpation: abdomen soft; abdomen nontender, no guarding and abdomen not rigid Neurologic: PERRL, EOMI, accommodation nl, no face palsy, no dysarthria Results & Data Vital Signs (Past 12 Hours) Vital Signs Temp Pulse Pulse Pulse Resp BP Pulse Ox 06/10/19 09:51 65 95 06/10/19 09:46 06/10/19 07:42 36.5 C 67 20 108/70 98 06/10/19 03:52 37.0 C 67 16 108/66 97 06/10/19 01:31 64 06/09/19 23:44 36.8 C 60 19 102/58 L 100 Pulse Ox 06/10/19 09:51 06/10/19 09:46 95 06/10/19 07:42 06/10/19 03:52 06/10/19 01:31 06/09/19 23:44
[2019-06-11] MEDS: DOXYCYCLINE HYCLATE 100 MG in DEXTROSE 5% 100 ML IV SCH (04:50)
[2019-06-11] MEDS: LEVOTHYROXINE SODIUM 150 MCG TABLET PO SCH (05:38)
[2019-06-11 07:38] LABS: Basophils # (auto) 0.02 K/uL (0-0.2); Basophils % (auto) 0.3 %; Eosinophils # (auto) 0.03 K/uL (0-0.5); Eosinophils % (auto) 0.4 %; Hematocrit (blood only) 29.6 % (37-47); Hemoglobin 8.9 g/dL (12.0-16.0); Immature Granulocytes # (auto) 0.04 K/uL (0.00-0.02); Immature Granulocytes % (auto) 0.6 %; Lymphocytes # (auto) 1.32 K/uL (1.2-3.4); Lymphocytes % (auto) 18.7 %; Mean Corpuscular Hemoglobin 27.9 pg (25-34); Mean Corpuscular Hgb Conc 30.1 g/dL (32-36); Mean Corpuscular Volume 92.8 fL (80-100); Mean Platelet Volume 9.7 fL (7.4-10.4); Monocytes # (auto) 0.57 K/uL (0.11-0.59); Monocytes % (auto) 8.1 %; Neutrophils # (auto) 5.07 K/uL (1.4-6.5); Neutrophils % (auto) 71.9 %; Platelet Count 185 K/uL (130-400); RDW Coefficient of Variation 18.7 % (11.5-14.5); RDW Standard Deviation 63.6 fL (36.4-46.3); Red Blood Count 3.19 M/uL (4.2-5.4); White Blood Count 7.05 K/uL (4.8-10.8)
[2019-06-11 08:22] LABS: BUN Creatinine Ratio 30.1 (10-20); Calcium 9.1 mg/dl (8.5-10.1); Creatinine Clr Calc Pharmacy 45.6 ml/min; Est GFR (African American) 41.5; Est GFR (Non-African American) 35.8; Potassium 3.6 mmol/L (3.5-5.1)
[2019-06-11] MEDS: ENOXAPARIN INJ 40 MG/0.4 ML SYR SQ SCH (08:55)
[2019-06-11] MEDS: INSULIN ASPART 100 UNITS/ML 3 ML PEN SC SCH ×2 (08:55→11:50)
[2019-06-11] MEDS: allopurinoL 100 MG TAB PO SCH (08:56)
[2019-06-11] MEDS: VITAMIN B COMPLEX TAB PO SCH (08:56)
[2019-06-11] MEDS: METOPROLOL TARTRATE 25 MG TAB PO SCH (08:57)
[2019-06-11] MEDS: BUMETANIDE 1 MG TAB PO SCH (08:57)
[2019-06-11] MEDS: INSULIN GLARGINE SOLOSTAR 100 UNITS/ML 3 ML PEN SQ SCH (08:58)
[2019-06-11] MEDS: BUDESONIDE/FORMOTEROL FUMARATE 160/4.5 60 PUFFS/INHALER INH SCH (08:58)
--- NOTE | 2019-06-11 10:17 | Discharge Summary ---
Date of Service June 11, 2019 Admission HPI Per Admitting Provider History obtained from patient, family, and records. History somewhat limited from patient secondary to lethargy post Ativan administration at the ER. Medical history significant for chronic respiratory failure on home O2 at night, hypertension, possible COPD as per records ( disputes diagnosis), endometrial cancer status post surgery ongoing chemotherapy, DM 2, diet- controlled hypothyroidism, chronic anemia (baseline hemoglobin 9-10), gout. Patient underwent debulking surgery for stage III endometrial carcinoma at [facility] in [place] last December 2018. Postop, patient discharged on home O2 at night. Possible COPD as per records. 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 Outpatient PFTs yet to be reviewed with patient as per . No prior sleep studies as per . Recent confinement [facility] 2 weeks ago for possible CHF, pneumonia, COPD exacerbation, UTI. Patient discharged on Cipro and Prednisone taper. Outpatient hemoglobin noted to be 7.5 last week. Outpatient 1 unit PRBC at [place] last week. Posttransfusion upon arrival at home, patient had low-grade fever and increasing shortness of breath requiring Home O2 use throughout the day as per . Some fluid retention over the last few months as per . No unusual cough symptoms. No consultations done. Patient brought due to worsening shortness of breath, generalized weakness. Denies chest pain. At the ER, patient received IV Lasix, IV Solu-Medrol for congestion. IV Ativan administered for anxiety prior to CT study. Regular insulin given for blood sugar in the 400s. Medical History as above Surgical History : Cholecystectomy, umbilical hernia repair, SANJUANITA-BSO/debulking surgery, vascular device placement Family History : COPD, arthritis Personal/Social history : Non-smoker, no EtOH intake, lives with Admission Exam Per Admitting Provider GENERAL: Lethargic, obese, no respiratory distress SKIN: Pallor , warm HEENT: Alopecia, bespectacled, pale palpebral conjunctivae, no ptosis, nasal cannula in place, dry buccal mucosa NECK : Supple, short neck, no tenderness CHEST : Decreased breath sounds, bibasilar crackles, no tenderness HEART : RRR, no obvious murmurs ABDOMEN: Some distention, nontender EXTREMITIES : Bilateral LE swelling, no LE tenderness, no other conspicuous deformities noted NEUROLOGIC : Lethargic , no facial asymmetry, no other gross focality Principal Diagnosis Acute and chronic respiratory failure with hypercapnia: Diabetes type 2 Hypertension Endometrial cancer Hypothyroidism Decubitus ulcer Chronic anemia Abnormal UA Diarrhea CKD 3 Generalized weakness Morbid Obesity Discharge Exam Gen-AAO x 3, NAD, Afebrile, Obese Head-NCAT, EOMI, PERRLA, Anicteric Sclera, No Posterior Pharyngeal Erythema Neck-Supple, No JVD, No Thyromegaly, No Masses, No LAD, No Bruits Lungs-Clear to Auscultation Bilaterally, No Rales, No Rhonchi, No Wheezing, No Crepitus Chest-No S4, +S1, +S2, No S3, No Murmurs, No Rubs, No Gallops, No Ectopy Abdomen-Soft, Bowel Sounds Present, Non Tender, Non Distended, No Hepatomegaly, No Splenomegaly, No Palpable Masses, No Rebound, No Rigidity, No Guarding Musculoskeletal-Full Range of Motion Bilaterally, No CVAT Extremities-No Cyanosis, No Clubbing, Dependent Edema Nuero-Cranial Nerves II-XII grossly intact, Motor WNL, DTRs WNL, Strength WNL, Non Focal Psych-Normal Mood Discharge Data Allergies Allergy/AdvReac Type Severity Reaction Status Date / Time No Known Allergies Allergy Unverified 06/03/19 22:22 Consultations 06/04/19 01:22 ED Decision to Admit Stat 06/04/19 04:47 Consult Cardiology Routine Consult Case Management - Discharge Planning Routine Consult Health Information Management Routine 06/04/19 10:02 Consult Health Information Management Routine 06/09/19 15:32 Consult Infectious Diseases Routine 06/10/19 08:14 Consult Case Management - Discharge Planning Routine Ordered Studies 06/03/19 22:08 CT angio chest PE protocol Urgent Current Diagnoses Essential (primary) hypertension (06/04/19) Acute on chronic diastolic (congestive) heart failure (06/04/19) Acute and chronic respiratory failure with hypercapnia (06/04/19) Pressure ulcer of unspecified site, unspecified stage (06/04/19) Unspecified open wound of lower back and pelvis without penetration into retroperitoneum, initial encounter (06/04/19) Allergies No Known Allergies Allergy (Unverified 06/03/19 22:22) Height/Weight/Isolation Height 5 ft 7 in Weight 123.6 kg Isolation Type Contact Precautions Chemistry 06/10/19 06/11/19 07:40 07:01 Sodium 140 137 Potassium 3.5 3.6 Chloride 95 L 93 L Carbon Dioxide 40 H 41 H* Anion Gap 5.0 3.0 BUN 31 H 42 H Creatinine 1.09 1.41 H D Glucose 142 H 151 H Microbiology 06/08/19 09:45 Buttock Gram Stain - Final 06/08/19 09:45 Buttock Deep Wound Culture - Final Staph aureus MRSA 06/07/19 23:01 Urine,Indwelling Cath Urine Culture - Final Staph aureus MRSA 06/08/19 09:45 Thigh,Right Gram Stain - Final 06/08/19 09:45 Thigh,Right Deep Wound Culture - Preliminary Staph aureus MRSA 06/03/19 21:57 Blood Aerobic Blood Culture - Final No growth in Aerobic bottle after 5 days. 06/03/19 21:57 Blood Anaerobic Blood Culture - Final No growth in Anaerobic bottle after 5 days. 06/03/19 22:27 Blood Aerobic Blood Culture - Final No growth in Aerobic bottle after 5 days. 06/03/19 22:27 Blood Anaerobic Blood Culture - Final No growth in Anaerobic bottle after 5 days. Hospital Course (1) Acute and chronic respiratory failure with hypercapnia: Secondary with CHF exacerbation due to fluid overload post blood transfusion last week CXR showed cardiomegaly with evidence of congestive failure. Small pleural effusions with bibasilar consolidation. CTA showed no evidence for major central pulmonary embolus. Bibasilar atelectasis/trace pleural effusions. ABG on admission showed PCO2 68 (CO2 retainer) Influenza negative Received Lasix 40mg IV and Solumedrol on admission Was placed on Bipap, on NC now Acute diastolic CHF CXR showed evidence of congestive failure ProBNP on admission 2412 received IV lasix 40mg on admission Echo showed moderate concentric left ventricular hypertrophy. No wall motion abnormality with ejection fraction 65 to 70%. Diastolic dysfunction grade 2 Net output about 7L Creatinine stable Diabetes type 2 Hyperglycemia due to steroid Recent HbA1c 7.9 Hypertension BP elevated Continue Lisinopril 2.5 mg daily Continue metoprolol Endometrial cancer Status post surgery Currently undergoing Chemo q21 days Next chemo schedule on Friday Hypothyroidism TSH 0.27 Continue Levothyroxine Decubitus ulcer Continue daily wound care wound care on board Wound cx sent +MRSA Chronic anemia Received 1 unit PRBC last week outpatient Continue monitor CBC Abnormal UA Call received from outpatient provider that urine cx grew MRSA with >[id number] colonies Seems to be contaminated Diarrhea Possible related to abx Stool for Cdiff Toxin B Positive-But PCR negative, D/W ID and will not treat for CDT Monitor electrolytes CKD 3 Creatinine stable Will monitor BMP while on IV lasix Generalized weakness fall precaution PT/OT Refuse to participate in therapy Code status Full code Disposition Continue monitor in tele Home with [facility] today Patient's requesting updates from providers. Mr. Tal Britt, contact #[phone]. Updated 06/10 on plan Total Time Total Time Spent Total Time Spent (In Minutes): 45 mins Total Time Includes: Examination of the Patient, Discharge Planning, Medication Reconciliation and Communication With Other Providers Discharge Plan Discharge Items Patient Disposition: Home - Home Health Services Reason For Visit: RESPIRATORY FAILURE Discharge Diagnosis: Acute and chronic respiratory failure with hypercapnia: Diabetes type 2 Hypertension Endometrial cancer Hypothyroidism Decubitus ulcer Chronic anemia Abnormal UA Diarrhea CKD 3 Generalized weakness Morbid Obesity Condition on Discharge: Good Activity: Resume your previous activity Lifting: None Bathing: No limitations Exercise/Sports: None Driving/Machine Use: None Weightbearing: Full weightbearing Non-emergency contact: Primary Care Provider and Specialist Call non-emergency contact if: you have any medication questions Follow-up/Referrals: Demi Gomez [Primary Care Provider] - Abeba Melchor DO [Physician] - (Call for first opening) Uziel Curry MD [Physician] - (Call for first opening) Diet: Heart Healthy Fluids: 1500ml (6 cups) Addtl Attending Provider Instructions: Wound care to buttock wounds Pending Studies at Discharge: No Stand-Alone Forms: My [facility] [employer], Smoking Cessation Skilled Items Patient informed of condition?: Yes DNR: No Medications and DC Order Prescriptions: New nitroglycerin [Nitrostat] 0.4 mg Tablet, Sublingual 0.4 mg sublingual UD PRN (Reason: chest pain) Qty: 30 RF: 0 lisinopril 2.5 mg Tablet 2.5 mg PO QAM Qty: 30 RF: 0 metoprolol tartrate 25 mg Tablet 25 mg PO BID Qty: 60 RF: 0 acetaminophen [Mapap (acetaminophen)] 325 mg Tablet 650 mg PO Q4H PRN (Reason: fever or pain) Qty: 100 RF: 0 tramadol 50 mg Tablet 25 mg PO Q4H PRN (Reason: pain) Qty: 40 RF: 0 bumetanide 1 mg Tablet 1 mg PO QAM Qty: 30 RF: 0 doxycycline monohydrate 100 mg capsule 100 mg PO Q12H 28 Days Qty: 56 RF: 0 Continued terconazole 0.4 % cream 1 appful VAGINAL UD RF: 0 ipratropium-albuterol 0.5 mg-3 mg(2.5 mg base)/3 mL solution for nebulization 3 ml INHALATION QID PRN (Reason: Shortness Of Breath Or Wheezing) RF: 0 albuterol sulfate 2.5 mg /3 mL (0.083 %) solution for nebulization 2.5 mg/kg continuous nebulization Q4 PRN (Reason: Shortness Of Breath Or Wheezing) RF: 0 ondansetron HCl [Zofran] 8 mg tablet 8 mg PO Q8 RF: 0 potassium chloride 10 mEq tablet extended release 10 meq PO DAILY RF: 0 prochlorperazine maleate 10 mg tablet 10 mg PO .Q4-6 PRN (Reason: Nausea) RF: 0 allopurinol 100 mg tablet 100 mg PO DAILY RF: 0 dexamethasone [Decadron] 4 mg tablet 8 mg PO UD RF: 0 levothyroxine 150 mcg tablet 150 mcg PO CQWK RF: 0 Phospha 250 Neutral 250 mg tablet 1 tab PO BID RF: 0 Symbicort 160-4.5 mcg/actuation Hfa Aerosol Inhaler 2 puff INHALATION BID RF: 0 cholecalciferol (vitamin D3) [Vitamin D3] 1,000 unit Tablet,Chewable 0 unit PO DAILY RF: 0 Vitamin B Complex Liquid 1 dose PO DAILY RF: 0 Discontinued prednisone 10 mg tablet 0 mg PO .TAPER UD RF: 0 ciprofloxacin HCl 500 mg tablet 500 mg PO BID RF: 0 bumetanide 0.5 mg tablet 0.5 mg PO DAILY RF: 0 lisinopril 10 mg Tablet 10 mg PO DAILY RF: 0 Discharge Orders: Discharge Order (Routine); Ordered 06/11/19 Ordered By: Javier Rivas/Other Patient Handouts: Diabetes Senior Care Complications, Diabetes Healthy Meals, Diabetes Carbs, Diabetes Exercise Benefits, Diabetes Activity Tips, Diabetes Living Life, A1C Admission Data Admit Date/Time: 06/04/19 03:27 Attending Provider: Javier Lemus Admit Provider: Henry Reyes Primary Care Provider: Demi Gomez Other Providers: Henry Reyes ; Uziel Curry ; Abeba Melchor
[2019-06-11] MEDS: HEPARIN 100 UNIT/ML 5ML FLUSH FLUSH PRN (10:57)
== END 2019-06-11 13:27 | disposition home health service (06) | DRG 291 ==
LOC: ED 21:12 → 2S 06-04 03:27 → SUATTDRO 06-04 03:27 → 2S 06-04 04:11